=== PATIENT | female | born 1940 | race Caucasian/White ===

== ENCOUNTER 2016-09-11 23:17 | Emergency (ER) | payer BC, MEDICARE ==
--- NOTE | 2016-09-12 00:27 | EDM.PDOC ---
[id number] 4d LT EYE SWOLLEN Time Seen by Provider: 09/11/16 23:37 Source of Information: Reports: Patient, Family History Limitations: Reports: Physical impairment - History of Present Illness INITIAL COMMENTS - FREE TEXT/NARRATIVE: 76 y.o.w.f. slipped over a rug and fell onto her left face. No LOC. Left orbit swell up after the fall. Pt had full vision at her left eye after the fall. Later on her face swell and she was not able see through her left eye due to postorbital swelling. Pt denies other injuries, no N/V/D Onset: today Onset Date: 09/11/16 Onset Time: 17:00 Duration: Hour(s):, Getting worse Quality: Reports: Pressure Severity: mild Improves with: Reports: None Worsens with: Reports: None Associated Symptoms: Reports: denies other symptoms - Related Data Allergies Allergy/AdvReac Type Severity Reaction Status Date / Time No Known Allergies Allergy Verified 09/11/16 23:27 Home Meds: Home Meds Amitriptyline [Elavil] 75 mg PO BEDTIME 04/20/15 [History] Ascorbic Acid [Vitamin C] 250 - 500 mg PO DAILY 04/20/15 [History] Aspirin [Halfprin] 81 mg PO DAILY 04/20/15 [History] Atenolol/Chlorthalidone [Tenoretic 100] 1.5 tab PO DAILY 04/20/15 [History] Cholecalciferol (Vitamin D3) [Vitamin D3] 1,000 units PO DAILY 04/20/15 [History ] Cyanocobalamin (Vitamin B-12) [Vitamin B-12] 500 mcg PO DAILY 04/20/15 [History] Ferrous Sulfate 650 mg PO DAILY 04/20/15 [History] Insuln Asp Prot/Insulin Aspart [NovoLOG Mix 70-30] 50 units SUBCUT BIDMEALS 09/29 [History] Multivitamin [Daily Multiple Vitamin] 1 tab PO DAILY 04/20/15 [History] PARoxetine [Paxil] 30 mg PO DAILY 04/20/15 [History] Sennosides/Docusate Sodium [Senna-S] 1 tab PO BID 04/20/15 [History] amLODIPine/Benazepril [Lotrel 5-20 MG] 1 cap PO DAILY 04/20/15 [History] atorvaSTATin [Lipitor] 20 mg PO DAILY 04/20/15 [History] metFORMIN [Glucophage] 1,275 mg PO BIDMEALS 04/20/15 [History] Past Medical History Cardiovascular History: Reports: Hypertension Other Cardiovascular History: currently heart rhythm study - Past Surgical History HEENT Surgical History: Reports: Other (see below) Other HEENT Surgeries/Procedures: both eyes GI Surgical History: Reports: Other (see below) Other GI Surgeries/Procedures: Colectomy for Colon CA Musculoskeletal Surgical History: Reports: Other (see below) Other Musculoskeletal Surgeries/Procedures:: Trans Lumbar interbody fusion Social & Family History - Tobacco Use Smoking Status *Q: Former Smoker Years of Tobacco use: 25 Used Tobacco, but Quit: No Second Hand Smoke Exposure: No - Caffeine Use Caffeine Use: Reports: Coffee - Recreational Drug Use Recreational Drug Use: No ED ROS GENERAL - Review of Systems Review Of Systems: See Below Constitutional: Reports: no symptoms HEENT: Reports: Other (swelling left face after fall) Respiratory: Reports: No Symptoms Cardiovascular: Reports: No symptoms Endocrine: Reports: no symptoms GI/Abdominal: Reports: No symptoms : Reports: no symptoms Musculoskeletal: Reports: no symptoms Skin: Reports: no symptoms Neurological: Reports: No Symptoms Psychiatric: Reports: No symptoms Hematologic/Lymphatic: Reports: no symptoms Immunologic: Reports: no symptoms ED EXAM, GENERAL - Physical Exam Exam: See Below Exam Limited By: No limitations General Appearance: alert, WD/WN, mild distress Eye Exam: left eye: other (periorbital swelling) Ears: normal external exam, normal canal Ear Exam: bilateral ear: auricle normal Nose: normal inspection, normal mucosa Throat/Mouth: Normal inspection, Normal lips Head: facial swelling (left periorbital) Neck: normal inspection Respiratory/Chest: no respiratory distress, lungs clear Cardiovascular: normal peripheral pulses, regular rate, rhythm Peripheral Pulses: 3+: femoral (L), femoral (R) GI/Abdominal: normal bowel sounds, soft, non tender (Female) Exam: Deferred Rectal (Female) Exam: Deferred Back Exam: normal inspection, full range of motion Extremities: normal inspection, normal range of motion Neurological: alert, oriented, CN II-XII intact, normal cognition, normal gait Psychiatric: normal affect, normal mood Skin Exam: Warm, Dry, Intact, Normal color, No rash Lymphatic: no adenopathy Course - Vital Signs Text/Narrative:: 76 y.o.w.f. slipped over a rug and fell onto her left face. No LOC. Left orbit swell up after the fall. Pt had full vision at her left eye after the fall. Later on her face swell and she was not able see through her left eye due to postorbital swelling. Pt denies other injuries, no N/V/D, takes ASA daily PE: Left sided periorbital swelling, EOMI Imaging: FT face, no Fx, soft tissue swelling Impression: Left sided periorbital hematoma Tx: Ice.Pt refused pain meds reexam: Improved Plan: D/C home with instructions Last Recorded V/S: Last Vital Signs Temp 36.7 C 09/11/16 23:37 Pulse 82 09/12/16 00:35 Resp 20 09/11/16 23:37 BP 145/65 H 09/12/16 00:35 Pulse Ox 96 09/11/16 23:37 - Orders/Labs/Meds Orders: Active Orders 24 hr Category Date Time Status Head wo Cont [CT] Stat Exams 09/11/16 23:31 Taken Max Facial Sinus wo Cont [CT] Stat Exams 09/11/16 23:30 Taken Departure - Departure Time of Disposition: 00:27 Disposition: Home, Self-Care 01 Condition: good Clinical Impression: Periorbital hematoma of left eye Fall Qualifiers: Encounter type: initial encounter Qualified Code(s): W19.XXXA - Unspecified fall, initial encounter Instructions: Fall Prevention in the Home, [id number] Referrals: Jason Burroughs MD [Primary Care Provider] - Forms: ED Department Discharge Additional Instructions: Please apply ice to the affected area, Please f/u with your eye doctor, please come back to he ed if your symptoms get worse acutely. - My Orders Last 24 Hours: My Active Orders 09/11/16 23:30 Max Facial Sinus wo Cont [CT] Stat 09/11/16 23:31 Head wo Cont [CT] Stat - Assessment/Plan Last 24 Hours: My Active Orders 09/11/16 23:30 Max Facial Sinus wo Cont [CT] Stat 09/11/16 23:31 Head wo Cont [CT] Stat
[2016-09-12 00:51] VITALS: BP 145/65
== END 2016-09-12 00:40 | disposition home or self-care (01) ==
LOC: FB.ED 23:17
DX: S05.12XA Contusion of eyeball and orbital tissues, left eye, initial encounter (principal); I10 Essential (primary) hypertension; W01.0XXA Fall on same level from slipping, tripping and stumbling without subsequent striking against object, initial encounter; Z79.82 Long term (current) use of aspirin; Z79.899 Other long term (current) drug therapy; Z87.891 Personal history of nicotine dependence
CPT/HCPCS: 70450; 70486; 99284

== ENCOUNTER 2017-01-29 10:28 | Inpatient (IN) | payer BC, MEDICARE ==
--- NOTE | 2017-01-29 10:52 | EDM.PDOC ---
ED HPI GENERAL MEDICAL PROBLEM - General Chief Complaint: Lower Extremity Injury/Pain Stated Complaint: FEELING ILL Time Seen by Provider: 01/29/17 10:40 Source of Information: Reports: Patient, Old Records History Limitations: Reports: No Limitations - History of Present Illness INITIAL COMMENTS - FREE TEXT/NARRATIVE: 76 yo diabetic female was seen last week for some ankle pain/erythema and was dx with gout and placed on prednisone. Now the redness and pain is getting worse and is spreading up the leg. No chills. The family called the clinic(Dr. Burroughs) today and found there were no appts available until this afternoon. They didn't want to wait so came to the ER. 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 (see below) (prednisone) R foot/ankle Pain Score (Numeric/FACES): 10 - Related Data Allergies Allergy/AdvReac Type Severity Reaction Status Date / Time No Known Allergies Allergy Verified 09/11/16 23:27 Home Meds: Home Meds Amitriptyline [Elavil] 75 mg PO BEDTIME 04/20/15 [History] Ascorbic Acid [Vitamin C] 250 - 500 mg PO DAILY 04/20/15 [History] Aspirin [Halfprin] 81 mg PO DAILY 04/20/15 [History] Atenolol/Chlorthalidone [Tenoretic 100] 1.5 tab PO DAILY 04/20/15 [History] Cholecalciferol (Vitamin D3) [Vitamin D3] 1,000 units PO DAILY 04/20/15 [History ] Cyanocobalamin (Vitamin B-12) [Vitamin B-12] 500 mcg PO DAILY 04/20/15 [History] Ferrous Sulfate 650 mg PO DAILY 04/20/15 [History] Insuln Asp Prot/Insulin Aspart [NovoLOG Mix 70-30] 50 units SUBCUT BIDMEALS 09/29 [History] Multivitamin [Daily Multiple Vitamin] 1 tab PO DAILY 04/20/15 [History] PARoxetine [Paxil] 30 mg PO DAILY 04/20/15 [History] Sennosides/Docusate Sodium [Senna-S] 1 tab PO BID 04/20/15 [History] amLODIPine/Benazepril [Lotrel 5-20 MG] 1 cap PO DAILY 04/20/15 [History] atorvaSTATin [Lipitor] 20 mg PO DAILY 04/20/15 [History] metFORMIN [Glucophage] 1,275 mg PO BIDMEALS 04/20/15 [History] Past Medical History Cardiovascular History: Reports: Hypertension Other Cardiovascular History: currently heart rhythm study - Past Surgical History HEENT Surgical History: Reports: Other (See Below) GI Surgical History: Reports: Other (See Below) Musculoskeletal Surgical History: Reports: Other (See Below) Social & Family History - Tobacco Use Smoking Status *Q: Former Smoker Years of Tobacco use: 25 Used Tobacco, but Quit: No Second Hand Smoke Exposure: No - Caffeine Use Caffeine Use: Reports: Coffee - Recreational Drug Use Recreational Drug Use: No Review of Systems - Review of Systems Review Of Systems: See Below Constitutional: Reports: No Symptoms Eyes: Reports: No Symptoms Ears: Reports: No Symptoms Nose: Reports: No Symptoms Mouth/Throat: Reports: No Symptoms Respiratory: Reports: No Symptoms Cardiovascular: Reports: No Symptoms GI/Abdominal: Reports: No Symptoms Genitourinary: Reports: No Symptoms Musculoskeletal: Reports: Joint Pain (R ankle) Skin: Reports: Erythema (R foot and distal R leg) Neurological: Reports: No Symptoms ED EXAM, GENERAL - Physical Exam Exam: See Below Exam Limited By: No Limitations General Appearance: Alert, WD/WN, No Apparent Distress Eye Exam: Bilateral Eye: Normal Inspection Ears: Normal External Exam, Normal Canal, Hearing Grossly Normal Ear Exam: Bilateral Ear: Auricle Normal, Canal Normal Nose: Normal Inspection, Normal Mucosa, No Blood Throat/Mouth: Normal Inspection, Normal Lips, Normal Oropharynx, No Airway Compromise Head: Atraumatic, Normocephalic Neck: Normal Inspection Respiratory/Chest: No Respiratory Distress, Lungs Clear, Normal Breath Sounds, No Accessory Muscle Use Cardiovascular: Regular Rate, Rhythm, No Edema GI/Abdominal: Soft, Non-Tender, No Distention Extremities: Redness (R distal leg and ankle. Slight increase in skin temperature locally.) Neurological: Alert, Oriented, CN II-XII Intact, Normal Cognition, No Motor/ Sensory Deficits Psychiatric: Normal Affect, Normal Mood Skin Exam: Warm, Dry, Intact, No Rash, Erythema (R ankle and distal R leg) Lymphatic: No Adenopathy Course - Vital Signs Last Recorded V/S: Last Vital Signs Temp 37.7 C 01/29/17 10:28 Pulse 108 H 01/29/17 10:28 Resp 18 01/29/17 10:28 BP 134/81 01/29/17 10:28 Pulse Ox 97 01/29/17 10:28 - Orders/Labs/Meds Orders: Active Orders 24 hr Category Date Time Status CULTURE BLOOD [BC] Urgent Lab 01/29/17 10:45 Received CULTURE BLOOD [BC] Urgent Lab 01/29/17 10:50 Received Acetaminophen [Tylenol Extra Strength] Med 01/29/17 11:24 Once 1,000 mg PO ONETIME ONE Blood Culture x2 Reflex Set [OM.PC] Urgent Oth 01/29/17 10:33 Ordered Labs: Laboratory Tests 01/29/17 01/29/17 01/29/17 Range/Units 10:45 10:45 10:50 WBC 10.9 (4.5-12.0) X10-3/uL RBC 3.78 (3.23-5.20) x10(6)uL Hgb 10.9 L (11.5-15.5) g/dL Hct 32.3 (30.0-51.3) % MCV 85.5 (80-96) fL MCH 28.7 (27.7-33.6) pg MCHC 33.6 (32.2-35.4) g/dL RDW 13.2 (11.5-15.5) % Plt Count 363 (125-369) X10(3)uL MPV 6.9 L (7.4-10.4) fL Neut % (Auto) 79.7 (46-82) % Lymph % (Auto) 10.2 L (13-37) % [place] % (Auto) 9.8 (4-12) % Eos % (Auto) 0 L (1.0-5.0) % Baso % (Auto) 0 (0-2) % Neut # (Auto) 8.7 H (1.6-8.3) # Lymph # (Auto) 1.1 (0.6-5.0) # [place] # (Auto) 1.1 (0.0-1.3) # Eos # (Auto) 0.0 (0.0-0.8) # Baso # (Auto) 0.0 (0.0-0.2) # Sodium 131 L (135-145) mmol/L Potassium 4.1 (3.5-5.3) mmol/L Chloride 92 L (100-110) mmol/L Carbon Dioxide 26 (23-29) mmol/L BUN 19 (8-23) mg/dL Creatinine 1.4 H (0.6-1.3) mg/dL Est Cr Clr Drug Dosing 30.28 mL/min Estimated GFR (MDRD) 36 L (>60) BUN/Creatinine Ratio 13.6 (9-20) Glucose 218 H (80-116) mg/dL Calcium 9.5 (8.6-10.2) mg/dL C-Reactive Protein > 20.0 H* (0.0-1.0) mg/dL Meds: Medications Discontinued Medications Generic Name Dose Route Start Last Admin Trade Name Freq PRN Reason Stop Dose Admin Trimethoprim/Sulfamethoxazole 1 tab 01/29/17 11:02 Septra Ds PO 01/29/17 11:03 ONETIME ONE Departure - Departure Time of Disposition: 11:35 Disposition: Home, Self-Care 01 Condition: Fair Clinical Impression: Cellulitis of right leg - Discharge Information - My Orders Last 24 Hours: My Active Orders 01/29/17 10:33 Blood Culture x2 Reflex Set [OM.PC] Urgent 01/29/17 10:45 CULTURE BLOOD [BC] Urgent 01/29/17 10:50 CULTURE BLOOD [BC] Urgent 01/29/17 11:24 Acetaminophen [Tylenol Extra Strength] 1,000 mg PO ONETIME ONE - Assessment/Plan Last 24 Hours: My Active Orders 01/29/17 10:33 Blood Culture x2 Reflex Set [OM.PC] Urgent 01/29/17 10:45 CULTURE BLOOD [BC] Urgent 01/29/17 10:50 CULTURE BLOOD [BC] Urgent 01/29/17 11:24 Acetaminophen [Tylenol Extra Strength] 1,000 mg PO ONETIME ONE
[2017-01-29] MEDS ORDERED: Sulfamethoxazole/Trimethoprim 800-160 MG Tab PO ONE (11:02)
[2017-01-29] MEDS ORDERED: Acetaminophen 500 MG Tab PO ONE (11:24)
[2017-01-29] MEDS ORDERED: Ondansetron 4 MG Tab.DIS PO PRN (12:31)
[2017-01-29] MEDS ORDERED: Polyethylene Glycol 3350 Powder 17 GM Packet PO PRN (12:31)
[2017-01-29] MEDS ORDERED: Acetaminophen 325 MG Tab PO PRN ×2 (12:31→15:30)
[2017-01-29] MEDS ORDERED: Acetaminophen/HYDROcodone 325-5 MG Tab PO PRN (12:31)
[2017-01-29] MEDS ORDERED: Morphine 2 MG/ML Syringe IVPUSH PRN (12:31)
[2017-01-29] MEDS ORDERED: Sodium Chloride 0.9% 1,000 ML IV SCH (12:45)
--- NOTE | 2017-01-29 14:05 | CR ---
INDICATION: Pretibial infection, pain. RIGHT ANKLE: Frontal and lateral views of the right tibia and fibula revealed soft tissue swelling at the lower calf and ankle bilaterally. Arterial calcifications are noted. Mild degenerative changes are noted at the ankle mortise without definite evidence of osteomyelitis, fracture, dislocation, or other significant bone or joint abnormality. A small calcific density is noted inferior to the lateral malleolus, which may be related to a soft tissue calcification due to a previous injury - correlate clinically. This study was obtained 01/29/2017 - no comparisons were available. IMPRESSION: 1. Mild osteoarthritis ankle mortise. 2. ASD. 3. Soft tissue swelling. MTDD
[2017-01-29] MEDS ORDERED: fentaNYL 100 MCG/2 ML SDV IV ONE (14:20)
[2017-01-29] MEDS ORDERED: Midazolam 1 MG/ML 2 ML SDV IV ONE (14:20)
[2017-01-29] MEDS ORDERED: Propofol 200 MG/20 ML SDV IV ONE (14:20)
[2017-01-29] MEDS ORDERED: Ketorolac 15 MG/ML SDV IVPUSH ONE (14:20)
[2017-01-29] MEDS ORDERED: Bupivacaine 0.5% 30 ML SDV INJECT ONE (14:58)
[2017-01-29] MEDS ORDERED: Docusate Sodium 100 MG Cap PO PRN (15:30)
[2017-01-29] MEDS: Lactated Ringers 1,000 ML IV SCH (16:15)
[2017-01-29] MEDS: Insuln Aspart Prot/Insulin Aspart 100 Units/ML 3 ML FlexPen SUBCUT SCH (19:45)
[2017-01-29] MEDS: Enoxaparin 30 MG/0.3 ML Syringe SUBCUT SCH (19:48)
[2017-01-29] MEDS: Amitriptyline 25 MG Tab PO SCH (20:17)
[2017-01-29] MEDS: PARoxetine 20 MG Tab PO SCH (20:21)
--- NOTE | 2017-01-29 20:50 | OR ---
DATE OF OPERATION: 01/29/2017 SURGEON: Justin Leonard MD PREOPERATIVE DIAGNOSIS: Infected right ankle with associated cellulitis. POSTOPERATIVE DIAGNOSIS: Infected right ankle with associated cellulitis. PROCEDURE PERFORMED: Irrigation and debridement, right ankle. OPERATIVE NOTE: The patient was taken to the operating room, placed on the operating room table in a supine position. A light MAC anesthesia was given with a local 0.5% Marcaine block. The patient had a sterile ChloraPrep performed from the tip of the toes to the knee. A sterile draping procedure was then carried out. The patient then had the local block applied without difficulty. A small incision approximately 2.5 inches in length was made over the anterior aspect of the joint. Skin and subcutaneous tissues were carefully dissected through and hemostasis was achieved utilizing electrocautery. The patient had the ankle joint open with a small hemostat and immediately bloody kind of cloudy newell material was expressed from the ankle joint. This was sent for aerobic and anaerobic cultures. Thorough irrigation was then carried out with approximately 700 mL of sterile normal saline with bacitracin. Once this was done, we then packed the joint with a half-inch iodoform gauze and closed the skin with 2-0 Ethilon. Area was cleansed, sterile dressings applied. COMPLICATIONS: None. ESTIMATED BLOOD LOSS: Approximately 5 mL. /[id number] SALO/ELISABETH
[2017-01-30] MEDS: Lactated Ringers 1,000 ML IV SCH (00:16)
[2017-01-30] MEDS: Acetaminophen/HYDROcodone 325-5 MG Tab PO PRN ×4 (04:09→16:35)
--- NOTE | 2017-01-30 08:46 | PCM.HP ---
H&P History of Present Illness - General Date of Service: 01/30/17 Admit Problem/Dx: Admission Diagnosis/Problem Admission Diagnosis/Problem Ankle joint pain Source of Information: Patient, Old Records - History of Present Illness Initial Comments - Free Text/Narative: 6 yo female admitted Because of pain in right ankle. The pain has been persistent,mild to moderate, for 3-4 days, seen on the by the CT treated for gout. At that visit uric acid level 7.5; slightly above the reference range. The pain and swelling increased she was brought to the emergency room where Dr. Leonard saw her,took her to the OR for debridement and diagnosed her with septic arthritis and cellulitis. I'm being consulted for medical management of other chronic conditions. She has a history of CKD stage III, stable hypertension stable, type 2 diabetes among with a recent A1c in December of 8.0. Just has depression that is well controlled. R foot/ankle Pain Score (Numeric/FACES): 2 - Related Data Allergies/Adverse Reactions: Allergies Allergy/AdvReac Type Severity Reaction Status Date / Time No Known Allergies Allergy Verified 01/29/17 12:31 Home Medications: Home Meds Amitriptyline [Elavil] 75 mg PO BEDTIME 04/20/15 [History] Ascorbic Acid [Vitamin C] 250 mg PO DAILY 04/20/15 [History] Aspirin [Halfprin] 81 mg PO DAILY 04/20/15 [History] Cholecalciferol (Vitamin D3) [Vitamin D3] 1,000 units PO DAILY 04/20/15 [History ] Cyanocobalamin (Vitamin B-12) [Vitamin B-12] 500 mcg PO DAILY 04/20/15 [History] Ferrous Sulfate 650 mg PO DAILY 04/20/15 [History] Insuln Asp Prot/Insulin Aspart [NovoLOG Mix 70-30] 50 units SUBCUT BIDMEALS 09/29 [History] Multivitamin [Daily Multiple Vitamin] 1 tab PO DAILY 04/20/15 [History] PARoxetine [Paxil] 30 mg PO DAILY 04/20/15 [History] atorvaSTATin [Lipitor] 20 mg PO DAILY 04/20/15 [History] Allopurinol [Zyloprim] 100 mg PO DAILY 01/29/17 [History] Metoprolol Succinate [Toprol XL] 50 mg PO DAILY 01/29/17 [History] PARoxetine HCl [Paxil] 20 mg PO BEDTIME 01/29/17 [History] Prednisone [IJD: Prednisone] 5 mg PO DAILY 01/29/17 [History] Sulfamethoxazole/Trimethoprim [Bactrim Ds Tablet] 1 each PO Q12H #14 tablet [Rx] amLODIPine Besylate/Benazepril [Amlodipine-Benazepril 5-20 MG] 1 tab DAILY 01/29 [History] metFORMIN [Glucophage] 1,275 mg PO DAILY 01/29/17 [History] metFORMIN [Glucophage] 425 mg PO WITHDINNER 01/29/17 [History] Past Medical History HEENT History: Reports: Cataract Cardiovascular History: Reports: Hypertension Other Cardiovascular History: currently heart rhythm study Gastrointestinal History: Reports: Other (See Below) Other Gastrointestinal History: colon cancer x2 Genitourinary History: Reports: Chronic 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 Psychiatric History: Reports: Anxiety, Depression Endocrine/Metabolic History: Reports: Diabetes, Type II, Obesity/BMI 30+ Hematologic History: Reports: Anemia, Iron Deficiency Oncologic (Cancer) History: Reports: Colon Other Oncologic History: colon CA x 2. Dermatologic History: Reports: Other (See Below) Other Dermatologic History: Currently has cellulitis to lower right ankle area. nervous condition, picks @ arms bilat & face. - Infectious Disease History Infectious Disease History: Reports: Chicken Pox, Measles, Mumps - Past Surgical History HEENT Surgical History: Reports: Cataract Surgery, Other (See Below) GI Surgical History: Reports: Colon, Colonoscopy, Other (See Below) Female Surgical History: Reports: Section Other Female Surgeries/Procedures: CS x 1 Musculoskeletal Surgical History: Reports: Other (See Below) Other Musculoskeletal Surgeries/Procedures:: Back surgery Social & Family History - Family History Family Medical History: Noncontributory - Tobacco Use Smoking Status *Q: Former Smoker Years of Tobacco use: 25 Used Tobacco, but Quit: Yes Month Tobacco Last Used: 1990 Second Hand Smoke Exposure: No - Caffeine Use Caffeine Use: Reports: Soda - Recreational Drug Use Recreational Drug Use: No H&P Review of Systems - Review of Systems: Review Of Systems: ROS reveals no pertinent complaints other than HPI. Exam - Exam Exam: See Below - Vital Signs Vital Signs: Last Vital Signs Temp 98.8 F 01/30/17 07:33 Pulse 97 01/30/17 00:20 Resp 18 01/30/17 07:33 BP 123/61 01/30/17 07:33 Pulse Ox 93 L 01/30/17 07:33 Weight: 91.535 kg - Exam General: Alert, Oriented, 4 HEENT: PERRLA, Hearing Intact, Mucosa Moist & [place], Nares Patent, Normal Nasal Septum, Posterior Pharynx Clear, Conjunctiva Clear, EOMI, EACs Clear, TMs Clear Neck: Supple, Trachea Midline, 2 Lungs: Clear to Auscultation, Normal Respiratory Effort Cardiovascular: Systolic Murmur GI/Abdominal Exam: Normal Bowel Sounds, Soft, Non-Tender, No Organomegaly, No Distention, No Abnormal Bruit, No Mass, Pelvis Stable (Female) Exam: Deferred Rectal (Female) Exam: Deferred Back Exam: Normal Inspection, Full Range of Motion, NT Extremities: Leg Pain, Increased Warmth, Redness, Other (right ankle in dressing.) Skin: Warm, Dry, Intact Neurological: Cranial Nerves Intact, Reflexes Equal Bilateral Neuro Extensive - Mental Status: Alert, Oriented x3, Normal Mood/Affect, Normal Cognition Neuro Extensive - Motor, Sensory, Reflexes: CN II-XII Intact, Normal Gait, Normal Reflexes Psychiatric: Alert, Normal Affect, Normal Mood - Patient Data Lab Results Last 24 hrs: Laboratory Results - last 24 hr 01/29/17 01/30/17 01/30/17 Range/Units 21:23 06:15 06:15 WBC 9.1 (4.5-12.0) X10-3/uL RBC 3.76 (3.23-5.20) x10(6)uL Hgb 10.5 L (11.5-15.5) g/dL Hct 32.0 (30.0-51.3) % MCV 85.2 (80-96) fL MCH 28.1 (27.7-33.6) pg MCHC 32.9 (32.2-35.4) g/dL RDW 13.3 (11.5-15.5) % Plt Count 356 (125-369) X10(3)uL MPV 6.7 L (7.4-10.4) fL Neut % (Auto) 72.9 (46-82) % Lymph % (Auto) 13.1 (13-37) % [place] % (Auto) 12.2 H (4-12) % Eos % (Auto) 1 (1.0-5.0) % Baso % (Auto) 1 (0-2) % Neut # (Auto) 6.6 (1.6-8.3) # Lymph # (Auto) 1.2 (0.6-5.0) # [place] # (Auto) 1.1 (0.0-1.3) # Eos # (Auto) 0.1 (0.0-0.8) # Baso # (Auto) 0.1 (0.0-0.2) # Sodium 135 (135-145) mmol/L Potassium 4.2 (3.5-5.3) mmol/L Chloride 96 L (100-110) mmol/L Carbon Dioxide 29 (23-29) mmol/L BUN 13 (8-23) mg/dL Creatinine 1.1 (0.6-1.3) mg/dL Est Cr Clr Drug Dosing 37.76 mL/min Estimated GFR (MDRD) 48 L (>60) BUN/Creatinine Ratio 11.8 (9-20) Glucose 141 H (80-116) mg/dL POC Glucose 101 (80-116) mg/dL Calcium 9.3 (8.6-10.2) mg/dL Total Bilirubin 0.9 (0.1-1.3) mg/dL AST 56 H (5-27) IU/L ALT 55 H D (14-26) IU/L Alkaline Phosphatase 76 (56-112) IU/L Total Protein 7.7 (6.0-8.0) g/dL Albumin 3.0 L (3.2-4.6) g/dL Globulin 4.7 g/dL Albumin/Globulin Ratio 0.6 Result Diagrams: 01/30/17 06:15 01/30/17 06:15 Renny Results Last 24 hrs: Microbiology 01/29/17 14:45 Gram Stain - Final Ankle, Right *Q Meaningful Use (ADM) - VTE *Q VTE Criteria *Q: - Stroke *Q Stroke Criteria *Q: - AMI *Q AMI Criteria *Q: - Problem List (1) HTN (hypertension) SNOMED Code(s): 82733165 ICD Code: I10 - ESSENTIAL (PRIMARY) HYPERTENSION Status: Acute Current Visit: Yes Qualifiers: Hypertension type: essential hypertension Qualified Code(s): I10 - Essential (primary) hypertension (2) Diabetes type 2, controlled SNOMED Code(s): 84327295 ICD Code: E11.9 - TYPE 2 DIABETES MELLITUS WITHOUT COMPLICATIONS Status: Chronic Current Visit: Yes Qualifiers: Diabetes mellitus complication status: without complication 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: without group home use Qualified Code(s): E11.9 - Type 2 diabetes mellitus without complications (3) HLD (hyperlipidemia) SNOMED Code(s): 38767360 ICD Code: E78.5 - HYPERLIPIDEMIA, UNSPECIFIED Status: Chronic Current Visit: Yes Qualifiers: Hyperlipidemia type: unspecified Qualified Code(s): E78.5 - Hyperlipidemia , unspecified (4) CKD (chronic kidney disease) stage 3, GFR 30-59 ml/min SNOMED Code(s): 229304591 ICD Code: N18.3 - CHRONIC KIDNEY DISEASE, STAGE 3 (MODERATE) Status: Chronic Current Visit: Yes (5) Septic arthritis SNOMED Code(s): 472204135 ICD Code: M00.9 - PYOGENIC ARTHRITIS, UNSPECIFIED Status: Acute Current Visit: Yes Qualifiers: Septic arthritis location: ankle (6) Depression SNOMED Code(s): 33190898 ICD Code: F32.9 - MAJOR DEPRESSIVE DISORDER, SINGLE EPISODE, UNSPECIFIED Status: Chronic Current Visit: Yes Qualifiers: Depression Type: major depressive disorder (7) Gout SNOMED Code(s): 23570367 ICD Code: M10.9 - GOUT, UNSPECIFIED Status: Acute Current Visit: Yes Qualifiers: Gout site: ankle (8) Cellulitis of right leg SNOMED Code(s): 979429405 ICD Code: L03.115 - CELLULITIS OF RIGHT LOWER LIMB Status: Acute Current Visit: Yes Problem List Initiated/Reviewed/Updated: Yes Orders Last 24hrs: Active Orders 24 hr Category Date Time Status Patient Status [ADT] Routine ADT 01/29/17 15:31 Active Glucose [Blood Glucose Check, Bedside] [RC] Care 01/29/17 15:47 Active WITHMEALSANDBED Intake and Output [RC] 06,14,22 Care 01/29/17 15:33 Active Notify Provider Consults [RC] ASDIRECTED Care 01/29/17 15:37 Active Oxygen Therapy [RC] PRN Care 01/29/17 15:31 Active RT Incentive Spirometry [RC] Q2HR Care 01/29/17 15:30 Active Vital Signs [RC] Q4H Care 01/29/17 15:30 Active Consult to Physician [CONS] Routine Cons 01/29/17 15:30 Ordered Clear Liquid Diet [DIET] Diet 01/29/17 Dinner Active Regular Diet [DIET] Diet 01/30/17 Breakfast Active CULTURE ANAEROBIC [RM] Routine Lab 01/29/17 12:18 Results CULTURE ROUTINE + SMEAR [RM] Routine Lab 01/29/17 12:18 Results CULTURE ROUTINE + SMEAR [RM] Stat Lab 01/29/17 14:45 Results VANCOMYCIN TROUGH [CHEM] Timed Lab 02/01/17 08:30 Ordered Acetaminophen [Tylenol] Med 01/29/17 15:30 Active 650 mg PO Q4H PRN Acetaminophen/HYDROcodone [[place] 325-5 MG] Med 01/29/17 15:30 Active 1 tab PO Q3H PRN Allopurinol [Zyloprim] Med 01/30/17 09:00 Active 100 mg PO DAILY Amitriptyline [Elavil] Med 01/29/17 21:00 Active 75 mg PO BEDTIME Ascorbic Acid [Vitamin C] Med 01/30/17 09:00 Active 250 mg PO DAILY Aspirin [Halfprin] Med 01/30/17 09:00 Active 81 mg PO DAILY Benazepril [Lotensin] Med 01/30/17 09:00 Active 20 mg PO DAILY Cholecalciferol (Vitamin D3) [Vitamin D3] Med 01/30/17 09:00 Active 1,000 units PO DAILY Cyanocobalamin (Vitamin B12) [Vitamin B12] Med 01/30/17 09:00 Active 500 mcg PO DAILY Docusate Sodium [Colace] Med 01/29/17 15:30 Active 100 mg PO BID PRN Ferrous Sulfate Med 01/30/17 09:00 Active 650 mg PO DAILY Insuln Asp Prot/Insulin Aspart [NovoLOG Mix 70-30] Med 01/29/17 18:00 Active 50 unit SUBCUT BIDMEALS Lactated Ringers [Ringers, Lactated] 1,000 ml Med 01/29/17 15:30 Active IV ASDIRECTED Multivitamins [Tab-A-[place]] Med 01/30/17 09:00 Active 1 tab PO DAILY PARoxetine [Paxil] Med 01/29/17 21:00 Active 20 mg PO BEDTIME PARoxetine [Paxil] Med 01/30/17 09:00 Active 30 mg PO DAILY Sodium Chloride 0.9% [Normal Saline] 1,000 ml Med 01/29/17 12:45 Active IV ASDIRECTED Vancomycin 1,000 mg Med 01/30/17 09:00 Active Vancomycin 500 mg Sodium Chloride 0.9% [Normal Saline] 500 ml IV Q24H Vancomycin Pharmacy to Dose [Pharmacy to Dose - Med 01/29/17 16:00 Pending Vancomycin] 1 dose .XX ASDIRECTED amLODIPine [Norvasc] Med 01/30/17 09:00 Active 5 mg PO DAILY atorvaSTATin [Lipitor] Med 01/30/17 09:00 Active 20 mg PO DAILY metFORMIN [Glucophage] Med 01/30/17 09:00 Active 1,275 mg PO DAILY metFORMIN [Glucophage] Med 01/29/17 20:15 Active 425 mg PO WITHDINNER Heel Protector Application [OM.PC] Per Unit Routine Oth 01/29/17 15:34 Ordered Sequential Compression Device [OM.PC] Per Unit Routine Oth 01/29/17 15:34 Ordered Medication Orders Acetaminophen (Tylenol) 650 mg PO Q4H PRN PRN Reason: Pain/Fever Hydrocodone Bitart/Acetaminophen ([place] 325-5 Mg) 1 tab PO Q3H PRN PRN Reason: Pain Last Admin: 01/30/17 04:09 Dose: 1 tab Allopurinol (Zyloprim) 100 mg PO DAILY [facility] Amitriptyline HCl (Elavil) 75 mg PO BEDTIME ROSMERY Last Admin: 01/29/17 20:17 Dose: 75 mg Amlodipine Besylate (Norvasc) 5 mg PO DAILY [facility] Ascorbic Acid (Vitamin C) 250 mg PO DAILY [facility] Aspirin (Halfprin) 81 mg PO DAILY [facility] Atorvastatin Calcium (Lipitor) 20 mg PO DAILY [facility] Benazepril HCl (Lotensin) 20 mg PO DAILY [facility] Cholecalciferol (Vitamin D3) 1,000 units PO DAILY [facility] Cyanocobalamin (Vitamin B12) 500 mcg PO DAILY [facility] Docusate Sodium (Colace) 100 mg PO BID PRN PRN Reason: Constipation Enoxaparin Sodium (Lovenox) 30 mg SUBCUT DAILY [facility] Last Admin: 01/29/17 19:48 Dose: Ferrous Sulfate (Ferrous Sulfate) 650 mg PO DAILY [facility] Sodium Chloride (Normal Saline) 1,000 mls @ 75 mls/hr IV ASDIRECTED [facility] Lactated Ringer's (Ringers, Lactated) 1,000 mls @ 125 mls/hr IV ASDIRECTED [facility] Last Admin: 01/30/17 00:16 Dose: 125 mls/hr Infusion: 01/30/17 00:15 Dose: 125 mls/hr Admin: 01/29/17 16:15 Dose: 125 mls/hr Vancomycin HCl 1,000 mg/Vancomycin HCl 500 mg/ Sodium Chloride 500 mls @ 333.333 mls/hr IV Q24H [facility] Insulin Aspart (Novolog Mix 70-30) 50 unit SUBCUT BIDMEALS [facility] Last Admin: 01/29/17 19:45 Dose: 50 units Metformin HCl (Glucophage) 1,275 mg PO DAILY [facility] Metformin HCl (Glucophage) 425 mg PO WITHDINNER [facility] Last Admin: 01/29/17 19:45 Dose: 425 mg Morphine Sulfate (Morphine) 2 mg IVPUSH Q2H PRN PRN Reason: Pain (severe 7-10) Multivitamins/Minerals/Vitamin C (Tab-A-[place]) 1 tab PO DAILY [facility] Ondansetron HCl (Zofran Odt) 4 mg PO Q6H PRN PRN Reason: nausea, able to take PO Paroxetine HCl (Paxil) 30 mg PO DAILY [facility] Paroxetine HCl (Paxil) 20 mg PO BEDTIME [facility] Last Admin: 01/29/17 20:21 Dose: 20 mg Polyethylene Glycol (Miralax) 17 gm PO DAILY PRN PRN Reason: Constipation Vancomycin HCl (Pharmacy To Dose - Vancomycin) 1 dose .XX ASDIRECTED [facility] Assessment/Plan Comment:: I will continue to follow the patient along with Dr. Leonard. I believe she is on broad-spectrum antibiotics, I will restart her oral home medications and have a sliding scale of insulin to of tight glycemic control.
[2017-01-30] MEDS ORDERED: Non-Formulary Medication 1 Each (Amlodipine Besylate/Benazepril [Amlodipine-Benazepril 5-2 MUCMEM SCH (09:00)
[2017-01-30] MEDS: Insuln Aspart Prot/Insulin Aspart 100 Units/ML 3 ML FlexPen SUBCUT SCH ×2 (09:26→17:56)
--- NOTE | 2017-01-30 09:43 | CONS ---
DATE OF CONSULTATION: 01/29/2017 PROBLEM: Right ankle pain. SUBJECTIVE: This 76-year-old, white female, diabetic, presented to the clinic at [place] and saw Dr. Burroughs last week. She had ankle pain and a diagnosis of gout was made and she was started on prednisone. The pain gradually increased and on Saturday, she started noticing not only pain, but redness and swelling. She therefore presented to the emergency room where diagnosis of cellulitis and a possible infected ankle joint was made by Dr. Magdaleno Sen. In visiting with the patient today, she states that she is having pain that significantly limits her ability even to put the least amount of weight on it and even flexing and extending the ankle causes discomfort for her. She has mild to moderate swelling. The patient has discoloration from previous venous stasis and erythema extending medially above the medial malleolus about 8 inches and laterally about 12 inches. Any type of palpation or attempted movement by me today causes discomfort. She moves her toes well. She denies any hip pain or knee pain. Peripheral pulses are not appreciated on palpation because of swelling. ASSESSMENT: Cellulitis versus possible ankle infection. PLAN: A sterile ChloraPrep was performed over the ankle and then with sterile technique we injected the ankle joint from the anterior aspect with approximately 7 mL of 1% plain Xylocaine. The joint was then aspirated with an 18-gauge spinal needle. We were able to draw out a fluid that was somewhat copper colored in nature from the joint. Stat gram stain showed the patient had white blood cells as well as gram-positive cocci. ASSESSMENT: Infected right ankle with secondary cellulitis. PLAN: I have visited with the patient's caregiver and have recommended that she have this joint irrigated and debrided, and to be started immediately with IV vancomycin and admission to the hospital. It should be noted that the patient also has an elevated C-reactive protein of 20. Her caregiver concurs, as does the patient. The patient does have slight dementia however. The risks, complications, prognosis, expectations, and postoperative course are explained to her daughter and the patient. /[id number] SALO/ELISABETH VILLEGAS
[2017-01-30] MEDS: Ferrous Sulfate 325 MG Tab PO SCH (10:16)
[2017-01-30] MEDS: Aspirin 81 MG Tab.EC PO SCH (10:17)
[2017-01-30] MEDS: atorvaSTATin 20 MG Tab PO SCH (10:18)
[2017-01-30] MEDS: amLODIPine 5 MG Tab PO SCH (10:18)
[2017-01-30] MEDS: Enoxaparin 30 MG/0.3 ML Syringe SUBCUT SCH (10:19)
[2017-01-30] MEDS: Multivitamin Tab PO SCH (10:19)
[2017-01-30] MEDS: Cholecalciferol (Vitamin D3) 1,000 Unit Tab PO SCH (10:20)
[2017-01-30] MEDS: Cyanocobalamin (Vitamin B12) 500 MCG Tab PO SCH (10:20)
[2017-01-30] MEDS: Ascorbic Acid 500 MG Tab PO SCH (10:26)
[2017-01-30] MEDS: Metoprolol Succinate 50 MG Tab.ER PO SCH (10:26)
[2017-01-30] MEDS: Allopurinol 100 MG Tab PO SCH (10:27)
[2017-01-30] MEDS: Insulin Aspart 100 Units/ML 3 ML Pen SUBCUT SCH ×2 (12:15→17:57)
--- NOTE | 2017-01-30 13:16 | PN ---
DATE SEEN: 01/30/2017 DIAGNOSIS: Infection, right ankle joint with cellulitis. SUBJECTIVE: The patient states she feels better today, but still has discomfort when she moves the ankle. OBJECTIVE: Today, her vital signs are stable and the swelling has decreased by about 50% from yesterday. Erythema has decreased about 30%. The iodoform gauze is removed. The area is cleansed with alcohol. Xeroform was applied with 4x4s, soft roll and then a Baylee. This patient who has diabetes is still having a fair amount of pain, so therapy will be delayed today, but start it tomorrow. We will continue with the vancomycin per pharmacy recommendations based on kidney function. Repeat dressing change tomorrow. /[id number] SALO/ELISABETH
[2017-01-30] MEDS: PARoxetine 20 MG Tab PO SCH (21:25)
[2017-01-30] MEDS: Amitriptyline 25 MG Tab PO SCH (21:25)
[2017-01-31] MEDS: Insuln Aspart Prot/Insulin Aspart 100 Units/ML 3 ML FlexPen SUBCUT SCH ×2 (08:00→18:39)
[2017-01-31] MEDS: Insulin Aspart 100 Units/ML 3 ML Pen SUBCUT SCH ×3 (08:04→17:55)
[2017-01-31] MEDS: Sodium Chloride 0.9% 250 ML IV SCH (09:45)
[2017-01-31] MEDS: Enoxaparin 30 MG/0.3 ML Syringe SUBCUT SCH (09:58)
[2017-01-31] MEDS: Aspirin 81 MG Tab.EC PO SCH (10:01)
[2017-01-31] MEDS: Cholecalciferol (Vitamin D3) 1,000 Unit Tab PO SCH (10:02)
[2017-01-31] MEDS: Metoprolol Succinate 50 MG Tab.ER PO SCH (10:06)
[2017-01-31] MEDS: Ascorbic Acid 500 MG Tab PO SCH (10:09)
[2017-01-31] MEDS: atorvaSTATin 20 MG Tab PO SCH (10:10)
[2017-01-31] MEDS: Ferrous Sulfate 325 MG Tab PO SCH (10:10)
[2017-01-31] MEDS: Multivitamin Tab PO SCH (10:11)
[2017-01-31] MEDS: Cyanocobalamin (Vitamin B12) 500 MCG Tab PO SCH (10:11)
[2017-01-31] MEDS: amLODIPine 5 MG Tab PO SCH (10:11)
[2017-01-31] MEDS: Allopurinol 100 MG Tab PO SCH (10:12)
--- NOTE | 2017-01-31 10:16 | PN ---
DATE SEEN: 01/31/2017 REASON FOR VISIT: Arthritis, septic. HISTORY OF PRESENT ILLNESS: A 76-year-old female admitted 2 days ago for septic arthritis and then debridement, is doing very well this morning, has type 2 diabetes which is stable. Complains of no pain. She has chronic kidney disease, that is also well controlled, and hypertension and hyperlipidemia that are stable. She has depression that is well controlled. REVIEW OF SYSTEMS: All other systems this morning are negative. MEDICATIONS: Reviewed. PHYSICAL EXAMINATION: VITAL SIGNS: Afebrile. Blood pressure 128/67. GENERAL: Right ankle in an Rajendra wrap. Slightly warm. CHEST AND HEART: Normal to auscultation except for heart murmur, 2/6 systolic. MENTAL STATUS: Alert. LABORATORY DATA: This morning, glucose 166. IMPRESSION: 1. Cellulitis, right lower extremity. 2. Septic arthritis. 3. Hypertension. 4. Hyperlipidemia. 5. Type 2 diabetes, stable. 6. Depression, stable. PLAN: Continue current therapy. Dr. Leonard is directing her care in terms of discharge and disposition. /[id number] TN/MODL
--- NOTE | 2017-01-31 13:32 | PN ---
DATE SEEN: 01/31/2017 PROBLEM: 1. Septic right ankle. 2. Cellulitis. SUBJECTIVE: The patient states she is feeling a little bit better today as far as her pain. OBJECTIVE: VITAL SIGNS: Stable. EXTREMITIES: The dressing is changed today. She does have moderate amount of serous drainage that came out of her foot through the incision today. The swelling continues to decrease and the erythema has improved markedly from admission. We will continue the IV antibiotics and daily dressing changes will be made cleansing with alcohol, application of Xeroform, soft roll, and then Kerlix. We are starting physical therapy to help her with the use of a walker. Because of the patient's continued drainage and pain, we will continue with IV antibiotics in hospitalization. The patient's care over the weekend will be followed by the hospitalist Dr. Bach. C-reactive protein will be drawn tomorrow morning for verification that the infection is diminishing and culture and sensitivities for antibiotic should be back later today. /[id number] SALO/ELISABETH
[2017-01-31] MEDS: Clindamycin Phosphate 900 MG in Sodium Chloride 0.9% 100 ML IV SCH (16:00)
[2017-01-31] MEDS: Acetaminophen/HYDROcodone 325-5 MG Tab PO PRN (21:10)
[2017-01-31] MEDS: Amitriptyline 25 MG Tab PO SCH (21:10)
[2017-01-31] MEDS: PARoxetine 20 MG Tab PO SCH (21:10)
[2017-02-01] MEDS: Clindamycin Phosphate 900 MG in Sodium Chloride 0.9% 100 ML IV SCH ×3 (00:03→16:09)
[2017-02-01] MEDS: Sodium Chloride 0.9% 10 ML Syringe FLUSH PRN ×3 (08:12→20:10)
[2017-02-01] MEDS: Insuln Aspart Prot/Insulin Aspart 100 Units/ML 3 ML FlexPen SUBCUT SCH ×2 (08:27→17:53)
[2017-02-01] MEDS: Insulin Aspart 100 Units/ML 3 ML Pen SUBCUT SCH ×3 (08:29→17:41)
[2017-02-01] MEDS: Ferrous Sulfate 325 MG Tab PO SCH (08:40)
[2017-02-01] MEDS: Aspirin 81 MG Tab.EC PO SCH (08:41)
[2017-02-01] MEDS: atorvaSTATin 20 MG Tab PO SCH (08:41)
[2017-02-01] MEDS: Enoxaparin 30 MG/0.3 ML Syringe SUBCUT SCH (08:42)
[2017-02-01] MEDS: Allopurinol 100 MG Tab PO SCH (08:42)
[2017-02-01] MEDS: Multivitamin Tab PO SCH (08:43)
[2017-02-01] MEDS: amLODIPine 5 MG Tab PO SCH (08:43)
[2017-02-01] MEDS: Metoprolol Succinate 50 MG Tab.ER PO SCH (08:43)
[2017-02-01] MEDS: Cholecalciferol (Vitamin D3) 1,000 Unit Tab PO SCH (08:44)
[2017-02-01] MEDS: Cyanocobalamin (Vitamin B12) 500 MCG Tab PO SCH (08:44)
[2017-02-01] MEDS: Ascorbic Acid 500 MG Tab PO SCH (08:44)
--- NOTE | 2017-02-01 09:00 | PCM.PN ---
- General Info Date of Service: 02/01/17 Admission Dx/Problem (Free Text): Patient states that her ankle pain is improved today. She still has trouble bearing weight. She denies fevers or chills. - Patient Data Vitals - Most Recent: Last Vital Signs Temp 98.4 F 02/01/17 07:30 Pulse 79 02/01/17 08:43 Resp 18 02/01/17 07:30 BP 143/69 H 02/01/17 08:43 Pulse Ox 95 02/01/17 07:30 Weight - Most Recent: 201 lb 12.8 oz I&O - Last 24 Hours: Intake & Output 01/31/17 02/01/17 02/01/17 22:59 06:59 14:59 Intake Total 850 100 Output Total 200 1500 Balance 650 -1400 Lab Results Last 24 Hours: Laboratory Results - last 24 hr 01/31/17 01/31/17 01/31/17 Range/Units 11:06 17:51 20:52 POC Glucose 159 H 142 H 55 L D (80-116) mg/dL [facility]enny Results Last 24 Hours: Microbiology 01/29/17 14:45 Gram Stain - Final Ankle, Right Routine Culture - Preliminary Med Orders - Current: Current Medications Acetaminophen (Tylenol) 650 mg PO Q4H PRN PRN Reason: Pain/Fever Hydrocodone Bitart/Acetaminophen ([place]ol[place] 325-5 Mg) 1 tab PO Q3H PRN PRN Reason: Pain Last Admin: 01/30/17 12:21 Dose: 1 tab Hydrocodone Bitart/Acetaminophen ([place]ol[place] 325-5 Mg) 2 tab PO Q3H PRN PRN Reason: pain Last Admin: 01/31/17 21:10 Dose: 2 tab Allopurinol (Zyloprim) 100 mg PO DAILY [facility] Last Admin: 02/01/17 08:42 Dose: 100 mg Amitriptyline HCl (Elavil) 75 mg PO BEDTIME [facility] Last Admin: 01/31/17 21:10 Dose: 75 mg Amlodipine Besylate (Norvasc) 5 mg PO DAILY [facility] Last Admin: 02/01/17 08:43 Dose: 5 mg Ascorbic Acid (Vitamin C) 250 mg PO DAILY [facility] Last Admin: 02/01/17 08:44 Dose: 250 mg Aspirin (Halfprin) 81 mg PO DAILY [facility] Last Admin: 02/01/17 08:41 Dose: 81 mg Atorvastatin Calcium (Lipitor) 20 mg PO DAILY [facility] Last Admin: 02/01/17 08:41 Dose: 20 mg Benazepril HCl (Lotensin) 20 mg PO DAILY [facility] Last Admin: 02/01/17 08:41 Dose: 20 mg Cholecalciferol (Vitamin D3) 1,000 units PO DAILY [facility] Last Admin: 02/01/17 08:44 Dose: 1,000 units Cyanocobalamin (Vitamin B12) 500 mcg PO DAILY [facility] Last Admin: 02/01/17 08:44 Dose: 500 mcg Docusate Sodium (Colace) 100 mg PO BID PRN PRN Reason: Constipation Last Admin: 01/30/17 16:34 Dose: 100 mg Enoxaparin Sodium (Lovenox) 30 mg SUBCUT DAILY [facility] Last Admin: 02/01/17 08:42 Dose: 30 mg Ferrous Sulfate (Ferrous Sulfate) 650 mg PO DAILY [facility] Last Admin: 02/01/17 08:40 Dose: 650 mg Sodium Chloride (Normal Saline) 250 mls @ 100 mls/hr IV ASDIRECTED [facility] Last Admin: 01/31/17 09:45 Dose: 100 mls/hr Clindamycin Phosphate 900 mg/ (Sodium Chloride) 106 mls @ 200 mls/hr IV Q8H [facility] Last Admin: 02/01/17 08:13 Dose: 200 mls/hr Insulin Aspart (Novolog Mix 70-30) 50 unit SUBCUT BIDMEALS [facility] Last Admin: 02/01/17 08:27 Dose: 50 units Insulin Aspart (Novolog) 0 unit SUBCUT TIDMEALS [facility] PRN Reason: Protocol Last Admin: 02/01/17 08:29 Dose: Not Given Metformin HCl (Glucophage) 1,275 mg PO DAILY [facility] Last Admin: 02/01/17 08:40 Dose: 1,275 mg Metformin HCl (Glucophage) 425 mg PO WITHDINNER [facility] Last Admin: 01/31/17 18:38 Dose: 425 mg Metoprolol Succinate (Toprol Xl) 50 mg PO DAILY [facility] Last Admin: 02/01/17 08:43 Dose: 50 mg Morphine Sulfate (Morphine) 2 mg IVPUSH Q2H PRN PRN Reason: Pain (severe 7-10) Last Admin: 01/30/17 13:56 Dose: 2 mg Multivitamins/Minerals/Vitamin C (Tab-A-Savannah) 1 tab PO DAILY [facility] Last Admin: 02/01/17 08:43 Dose: 1 tab Ondansetron HCl (Zofran Odt) 4 mg PO Q6H PRN PRN Reason: nausea, able to take PO Paroxetine HCl (Paxil) 30 mg PO DAILY [facility] Last Admin: 02/01/17 08:43 Dose: 30 mg Paroxetine HCl (Paxil) 20 mg PO BEDTIME [facility] Last Admin: 01/31/17 21:10 Dose: 20 mg Polyethylene Glycol (Miralax) 17 gm PO DAILY PRN PRN Reason: Constipation Sodium Chloride (Saline Flush) 10 ml FLUSH ASDIRECTED PRN PRN Reason: Keep Vein Open Last Admin: 02/01/17 08:12 Dose: 10 ml Discontinued Medications Acetaminophen (Tylenol Extra Strength) 1,000 mg PO ONETIME ONE Stop: 01/29/17 11:25 Last Admin: 01/29/17 11:27 Dose: 1,000 mg Acetaminophen (Tylenol) 650 mg PO Q4H PRN PRN Reason: Pain (Mild 1-3)/fever Hydrocodone Bitart/Acetaminophen (Bol[place] 325-5 Mg) 1 tab PO Q4H PRN PRN Reason: Pain (moderate 4-6) Bacitracin (Bacitracin) 50,000 units .XX .STK-MED ONE Stop: 01/29/17 14:59 Last Admin: 01/29/17 14:58 Dose: 50,000 units Bupivacaine HCl (Marcaine 0.5%) 24 ml INJECT .STK-MED ONE Stop: 01/29/17 14:59 Last Admin: 01/29/17 14:58 Dose: 24 ml Fentanyl (Sublimaze) 50 mcg IV .STK-MED ONE Stop: 01/29/17 14:21 Sodium Chloride (Normal Saline) 1,000 mls @ 75 mls/hr IV ASDIRECTED [facility] Vancomycin HCl 1,000 mg/ (Sodium Chloride) 250 mls @ 167 mls/hr IV Q12H [facility] Vancomycin HCl 1,000 mg/ (Sodium Chloride) 250 mls @ 250 mls/hr IV Q12H [facility] Last Admin: 01/29/17 13:41 Dose: 250 mls/hr Lactated Ringer's (Ringers, Lactated) 1,000 mls @ 125 mls/hr IV ASDIRECTED [facility] Last Admin: 01/30/17 00:16 Dose: 125 mls/hr Vancomycin HCl 1,000 mg/Vancomycin HCl 500 mg/ Sodium Chloride 500 mls @ 333.333 mls/hr IV Q24H [facility] Last Admin: 01/31/17 09:46 Dose: 333.333 mls/hr Ketorolac Tromethamine (Toradol) 15 mg IVPUSH .STK-MED ONE Stop: 01/29/17 14:21 Metformin HCl (Glucophage) 425 mg PO ACDINNER [facility] Metformin HCl (Glucophage) 850 mg PO WITHDINNER [facility] Metformin HCl (Glucophage) 1,275 mg PO BIDMEALS [facility] Last Admin: 01/29/17 19:52 Dose: Not Given Metformin HCl (Glucophage) 425 mg PO WITHDINNER [facility] Last Admin: 01/29/17 20:08 Dose: Not Given Midazolam HCl (Versed 1 Mg/Ml) 2 mg IV .STK-MED ONE Stop: 01/29/17 14:21 Non-Formulary Medication (Amlodipine Besylate/Benazepril [Amlodipine-Benazepril 5-20 Mg]) 1 tab MUCMEM DAILY [facility] Propofol (Diprivan 20 Ml) 320 mg IV .STK-MED ONE Stop: 01/29/17 14:21 Trimethoprim/Sulfamethoxazole (Septra Ds) 1 tab PO ONETIME ONE Stop: 01/29/17 11:03 Last Admin: 01/29/17 11:27 Dose: 1 tab - Exam General: Alert, Oriented, Cooperative Skin: Other (Wound right ankle has just a little serosanguineous drainage. No erythema. Less swelling.) - Problem List & Annotations (1) Status post incision and drainage SNOMED Code(s): 629843443, 802078362 Code(s): Z98.890 - OTHER SPECIFIED POSTPROCEDURAL STATES Status: Acute Current Visit: Yes (2) Cellulitis of right leg SNOMED Code(s): 923145925 Code(s): L03.115 - CELLULITIS OF RIGHT LOWER LIMB Status: Acute Current Visit: Yes - Problem List Review Problem List Initiated/Reviewed/Updated: Yes - Plan Plan:: Continue current care.
[2017-02-01] MEDS: Amitriptyline 25 MG Tab PO SCH (20:05)
[2017-02-01] MEDS: PARoxetine 20 MG Tab PO SCH (20:06)
[2017-02-01] MEDS: Acetaminophen/HYDROcodone 325-5 MG Tab PO PRN (20:14)
[2017-02-02] MEDS: Clindamycin Phosphate 900 MG in Sodium Chloride 0.9% 100 ML IV SCH ×3 (00:15→15:53)
[2017-02-02] MEDS: Sodium Chloride 0.9% 250 ML IV SCH (00:17)
[2017-02-02] MEDS: Insulin Aspart 100 Units/ML 3 ML Pen SUBCUT SCH ×3 (08:04→17:23)
[2017-02-02] MEDS: Insuln Aspart Prot/Insulin Aspart 100 Units/ML 3 ML FlexPen SUBCUT SCH ×2 (08:04→17:23)
[2017-02-02] MEDS: Ferrous Sulfate 325 MG Tab PO SCH (08:05)
[2017-02-02] MEDS: Aspirin 81 MG Tab.EC PO SCH (08:06)
[2017-02-02] MEDS: atorvaSTATin 20 MG Tab PO SCH (08:07)
[2017-02-02] MEDS: amLODIPine 5 MG Tab PO SCH (08:13)
[2017-02-02] MEDS: Enoxaparin 30 MG/0.3 ML Syringe SUBCUT SCH (08:13)
[2017-02-02] MEDS: Metoprolol Succinate 50 MG Tab.ER PO SCH (08:15)
[2017-02-02] MEDS: Cyanocobalamin (Vitamin B12) 500 MCG Tab PO SCH (08:15)
[2017-02-02] MEDS: Multivitamin Tab PO SCH (08:15)
[2017-02-02] MEDS: Ascorbic Acid 500 MG Tab PO SCH (08:16)
[2017-02-02] MEDS: Allopurinol 100 MG Tab PO SCH (08:17)
[2017-02-02] MEDS: Cholecalciferol (Vitamin D3) 1,000 Unit Tab PO SCH (08:17)
--- NOTE | 2017-02-02 09:12 | PCM.PN ---
- General Info Date of Service: 02/02/17 Admission Dx/Problem (Free Text): Patient states she still has pain in the right ankle. She denies fevers or chills. - Patient Data Vitals - Most Recent: Last Vital Signs Temp 98.3 F 02/02/17 04:30 Pulse 99 02/02/17 08:15 Resp 20 02/02/17 04:30 BP 111/46 L 02/02/17 08:15 Pulse Ox 96 02/02/17 04:30 Weight - Most Recent: 201 lb 12.8 oz I&O - Last 24 Hours: Intake & Output 02/01/17 02/02/17 02/02/17 22:59 06:59 14:59 Intake Total 533 130 136 Output Total 1250 Balance 533 -1120 136 Lab Results Last 24 Hours: Laboratory Results - last 24 hr 02/01/17 02/01/17 02/01/17 Range/Units 06:30 08:50 11:56 POC Glucose 91 83 (80-116) mg/dL C-Reactive Protein 16.7 H* (0.0-1.0) mg/dL 02/01/17 02/01/17 02/02/17 Range/Units 16:16 19:58 07:19 POC Glucose 119 H 89 146 H (80-116) mg/dL C-Reactive Protein (0.0-1.0) mg/dL Renny Results Last 24 Hours: Microbiology 01/29/17 14:45 Gram Stain - Final Ankle, Right Routine Culture - Final Med Orders - Current: Current Medications Acetaminophen (Tylenol) 650 mg PO Q4H PRN PRN Reason: Pain/Fever Hydrocodone Bitart/Acetaminophen ([place] 325-5 Mg) 1 tab PO Q3H PRN PRN Reason: Pain Last Admin: 01/30/17 12:21 Dose: 1 tab Hydrocodone Bitart/Acetaminophen ([place] 325-5 Mg) 2 tab PO Q3H PRN PRN Reason: pain Last Admin: 02/01/17 20:14 Dose: 2 tab Allopurinol (Zyloprim) 100 mg PO DAILY [facility] Last Admin: 02/02/17 08:17 Dose: 100 mg Amitriptyline HCl (Elavil) 75 mg PO BEDTIME [facility] Last Admin: 02/01/17 20:05 Dose: 75 mg Amlodipine Besylate (Norvasc) 5 mg PO DAILY [facility] Last Admin: 02/02/17 08:13 Dose: 5 mg Ascorbic Acid (Vitamin C) 250 mg PO DAILY [facility] Last Admin: 02/02/17 08:16 Dose: 250 mg Aspirin (Halfprin) 81 mg PO DAILY [facility] Last Admin: 02/02/17 08:06 Dose: 81 mg Atorvastatin Calcium (Lipitor) 20 mg PO DAILY [facility] Last Admin: 02/02/17 08:07 Dose: 20 mg Benazepril HCl (Lotensin) 20 mg PO DAILY [facility] Last Admin: 02/02/17 08:12 Dose: 20 mg Cholecalciferol (Vitamin D3) 1,000 units PO DAILY [facility] Last Admin: 02/02/17 08:17 Dose: 1,000 units Cyanocobalamin (Vitamin B12) 500 mcg PO DAILY [facility] Last Admin: 02/02/17 08:15 Dose: 500 mcg Docusate Sodium (Colace) 100 mg PO BID PRN PRN Reason: Constipation Last Admin: 01/30/17 16:34 Dose: 100 mg Enoxaparin Sodium (Lovenox) 30 mg SUBCUT DAILY [facility] Last Admin: 02/02/17 08:13 Dose: 30 mg Ferrous Sulfate (Ferrous Sulfate) 650 mg PO DAILY [facility] Last Admin: 02/02/17 08:05 Dose: 650 mg Sodium Chloride (Normal Saline) 250 mls @ 100 mls/hr IV ASDIRECTED [facility] Last Admin: 02/02/17 00:17 Dose: 100 mls/hr Clindamycin Phosphate 900 mg/ (Sodium Chloride) 106 mls @ 200 mls/hr IV Q8H [facility] Last Admin: 02/02/17 07:57 Dose: 200 mls/hr Insulin Aspart (Novolog Mix 70-30) 50 unit SUBCUT BIDMEALS [facility] Last Admin: 02/02/17 08:04 Dose: 50 units Insulin Aspart (Novolog) 0 unit SUBCUT TIDMEALS [facility] PRN Reason: Protocol Last Admin: 02/02/17 08:04 Dose: Not Given Metformin HCl (Glucophage) 1,275 mg PO DAILY [facility] Last Admin: 02/02/17 08:06 Dose: 1,275 mg Metformin HCl (Glucophage) 425 mg PO WITHDINNER [facility] Last Admin: 02/01/17 17:54 Dose: 425 mg Metoprolol Succinate (Toprol Xl) 50 mg PO DAILY [facility] Last Admin: 02/02/17 08:15 Dose: 50 mg Morphine Sulfate (Morphine) 2 mg IVPUSH Q2H PRN PRN Reason: Pain (severe 7-10) Last Admin: 01/30/17 13:56 Dose: 2 mg Multivitamins/Minerals/Vitamin C (Tab-A-Savannah) 1 tab PO DAILY [facility] Last Admin: 02/02/17 08:15 Dose: 1 tab Ondansetron HCl (Zofran Odt) 4 mg PO Q6H PRN PRN Reason: nausea, able to take PO Paroxetine HCl (Paxil) 30 mg PO DAILY [facility] Last Admin: 02/02/17 08:16 Dose: 30 mg Paroxetine HCl (Paxil) 20 mg PO BEDTIME [facility] Last Admin: 02/01/17 20:06 Dose: 20 mg Polyethylene Glycol (Miralax) 17 gm PO DAILY PRN PRN Reason: Constipation Sodium Chloride (Saline Flush) 10 ml FLUSH ASDIRECTED PRN PRN Reason: Keep Vein Open Last Admin: 02/01/17 20:10 Dose: 10 ml Discontinued Medications Acetaminophen (Tylenol Extra Strength) 1,000 mg PO ONETIME ONE Stop: 01/29/17 11:25 Last Admin: 01/29/17 11:27 Dose: 1,000 mg Acetaminophen (Tylenol) 650 mg PO Q4H PRN PRN Reason: Pain (Mild 1-3)/fever Hydrocodone Bitart/Acetaminophen ([place] 325-5 Mg) 1 tab PO Q4H PRN PRN Reason: Pain (moderate 4-6) Bacitracin (Bacitracin) 50,000 units .XX .STK-MED ONE Stop: 01/29/17 14:59 Last Admin: 01/29/17 14:58 Dose: 50,000 units Bupivacaine HCl (Marcaine 0.5%) 24 ml INJECT .STK-MED ONE Stop: 01/29/17 14:59 Last Admin: 01/29/17 14:58 Dose: 24 ml Fentanyl (Sublimaze) 50 mcg IV .STK-MED ONE Stop: 01/29/17 14:21 Sodium Chloride (Normal Saline) 1,000 mls @ 75 mls/hr IV ASDIRECTED [facility] Vancomycin HCl 1,000 mg/ (Sodium Chloride) 250 mls @ 167 mls/hr IV Q12H [facility] Vancomycin HCl 1,000 mg/ (Sodium Chloride) 250 mls @ 250 mls/hr IV Q12H [facility] Last Admin: 01/29/17 13:41 Dose: 250 mls/hr Lactated Ringer's (Ringers, Lactated) 1,000 mls @ 125 mls/hr IV ASDIRECTED [facility] Last Admin: 01/30/17 00:16 Dose: 125 mls/hr Vancomycin HCl 1,000 mg/Vancomycin HCl 500 mg/ Sodium Chloride 500 mls @ 333.333 mls/hr IV Q24H [facility] Last Admin: 01/31/17 09:46 Dose: 333.333 mls/hr Ketorolac Tromethamine (Toradol) 15 mg IVPUSH .STK-MED ONE Stop: 01/29/17 14:21 Metformin HCl (Glucophage) 425 mg PO ACDINNER [facility]) [facility] Metformin HCl (Glucophage) 1,275 mg PO BIDMEALS [facility] Last Admin: 01/29/17 19:52 Dose: Not Given Metformin HCl (Glucophage) 425 mg PO WITHDINNER [facility] Last Admin: 01/29/17 20:08 Dose: Not Given Midazolam HCl (Versed 1 Mg/Ml) 2 mg IV .STK-MED ONE Stop: 01/29/17 14:21 Non-Formulary Medication (Amlodipine Besylate/Benazepril [Amlodipine-Benazepril 5-20 Mg]) 1 tab MUCMEM DAILY [facility] Propofol (Diprivan 20 Ml) 320 mg IV .STK-MED ONE Stop: 01/29/17 14:21 Trimethoprim/Sulfamethoxazole (Septra Ds) 1 tab PO ONETIME ONE Stop: 01/29/17 11:03 Last Admin: 01/29/17 11:27 Dose: 1 tab - Exam General: Alert, Oriented, Cooperative Extremities: No Pedal Edema Skin: Other (Looks good on the ankle. Little serosanguineous drainage. No bright red color.) - Problem List & Annotations (1) Status post incision and drainage SNOMED Code(s): 243227307, 834099400 Code(s): Z98.890 - OTHER SPECIFIED POSTPROCEDURAL STATES Status: Acute Current Visit: Yes (2) Cellulitis of right leg SNOMED Code(s): 133765131 Code(s): L03.115 - CELLULITIS OF RIGHT LOWER LIMB Status: Acute Current Visit: Yes - Problem List Review Problem List Initiated/Reviewed/Updated: Yes - Plan Plan:: Staph aureus was grown out that's sensitive to clindamycin. She is currently on clindamycin. Continue current care.
[2017-02-02] MEDS: Acetaminophen/HYDROcodone 325-5 MG Tab PO PRN ×2 (10:20→19:55)
[2017-02-02] MEDS: Amitriptyline 25 MG Tab PO SCH (20:31)
[2017-02-02] MEDS: PARoxetine 20 MG Tab PO SCH (20:31)
[2017-02-03] MEDS: Clindamycin Phosphate 900 MG in Sodium Chloride 0.9% 100 ML IV SCH ×3 (01:03→15:46)
[2017-02-03] MEDS: Insulin Aspart 100 Units/ML 3 ML Pen SUBCUT SCH ×4 (08:04→17:36)
[2017-02-03] MEDS: Insuln Aspart Prot/Insulin Aspart 100 Units/ML 3 ML FlexPen SUBCUT SCH ×2 (08:07→17:36)
--- NOTE | 2017-02-03 08:26 | PCM.PN ---
- General Info Date of Service: 02/03/17 Admission Dx/Problem (Free Text): Patient states she was able to bear a little weight last night. She feels the pain is improved. Denies fevers. - Patient Data Vitals - Most Recent: Last Vital Signs Temp 98.5 F 02/03/17 06:05 Pulse 91 02/03/17 06:05 Resp 18 02/03/17 06:05 BP 137/98 H 02/03/17 06:05 Pulse Ox 97 02/03/17 06:05 Weight - Most Recent: 201 lb 12.8 oz I&O - Last 24 Hours: Intake & Output 02/02/17 02/03/17 02/03/17 22:59 06:59 14:59 Intake Total 135 Output Total 0 Balance 135 Lab Results Last 24 Hours: Laboratory Results - last 24 hr 02/02/17 02/02/17 02/02/17 Range/Units 11:34 16:06 20:33 POC Glucose 322 H D 169 H D 223 H (80-116) mg/dL 02/03/17 Range/Units 06:10 POC Glucose 193 H (80-116) mg/dL Med Orders - Current: Current Medications Acetaminophen (Tylenol) 650 mg PO Q4H PRN PRN Reason: Pain/Fever Hydrocodone Bitart/Acetaminophen ([place] 325-5 Mg) 1 tab PO Q3H PRN PRN Reason: Pain Last Admin: 02/02/17 10:20 Dose: 1 tab Hydrocodone Bitart/Acetaminophen ([place] 325-5 Mg) 2 tab PO Q3H PRN PRN Reason: pain Last Admin: 02/02/17 19:55 Dose: 2 tab Allopurinol (Zyloprim) 100 mg PO DAILY [facility] Last Admin: 02/02/17 08:17 Dose: 100 mg Amitriptyline HCl (Elavil) 75 mg PO BEDTIME [facility] Last Admin: 02/02/17 20:31 Dose: 75 mg Amlodipine Besylate (Norvasc) 5 mg PO DAILY [facility] Last Admin: 02/02/17 08:13 Dose: 5 mg Ascorbic Acid (Vitamin C) 250 mg PO DAILY [facility] Last Admin: 02/02/17 08:16 Dose: 250 mg Aspirin (Halfprin) 81 mg PO DAILY [facility] Last Admin: 02/02/17 08:06 Dose: 81 mg Atorvastatin Calcium (Lipitor) 20 mg PO DAILY [facility] Last Admin: 02/02/17 08:07 Dose: 20 mg Benazepril HCl (Lotensin) 20 mg PO DAILY [facility] Last Admin: 02/02/17 08:12 Dose: 20 mg Cholecalciferol (Vitamin D3) 1,000 units PO DAILY [facility] Last Admin: 02/02/17 08:17 Dose: 1,000 units Cyanocobalamin (Vitamin B12) 500 mcg PO DAILY [facility] Last Admin: 02/02/17 08:15 Dose: 500 mcg Docusate Sodium (Colace) 100 mg PO BID PRN PRN Reason: Constipation Last Admin: 01/30/17 16:34 Dose: 100 mg Enoxaparin Sodium (Lovenox) 30 mg SUBCUT DAILY [facility] Last Admin: 02/02/17 08:13 Dose: 30 mg Ferrous Sulfate (Ferrous Sulfate) 650 mg PO DAILY [facility] Last Admin: 02/02/17 08:05 Dose: 650 mg Sodium Chloride (Normal Saline) 250 mls @ 100 mls/hr IV ASDIRECTED [facility] Last Admin: 02/02/17 00:17 Dose: 100 mls/hr Clindamycin Phosphate 900 mg/ (Sodium Chloride) 106 mls @ 200 mls/hr IV Q8H [facility] Last Admin: 02/03/17 08:04 Dose: 200 mls/hr Insulin Aspart (Novolog Mix 70-30) 50 unit SUBCUT BIDMEALS [facility] Last Admin: 02/03/17 08:07 Dose: 50 units Insulin Aspart (Novolog) 0 unit SUBCUT TIDMEALS [facility] PRN Reason: Protocol Last Admin: 02/03/17 08:04 Dose: 2 units Metformin HCl (Glucophage) 1,275 mg PO DAILY [facility] Last Admin: 02/02/17 08:06 Dose: 1,275 mg Metformin HCl (Glucophage) 425 mg PO WITHDINNER [facility] Last Admin: 02/02/17 17:22 Dose: 425 mg Metoprolol Succinate (Toprol Xl) 50 mg PO DAILY [facility] Last Admin: 02/02/17 08:15 Dose: 50 mg Morphine Sulfate (Morphine) 2 mg IVPUSH Q2H PRN PRN Reason: Pain (severe 7-10) Last Admin: 01/30/17 13:56 Dose: 2 mg Multivitamins/Minerals/Vitamin C (Tab-A-[place]) 1 tab PO DAILY [facility] Last Admin: 02/02/17 08:15 Dose: 1 tab Ondansetron HCl (Zofran Odt) 4 mg PO Q6H PRN PRN Reason: nausea, able to take PO Paroxetine HCl (Paxil) 30 mg PO DAILY [facility] Last Admin: 02/02/17 08:16 Dose: 30 mg Paroxetine HCl (Paxil) 20 mg PO BEDTIME [facility] Last Admin: 02/02/17 20:31 Dose: 20 mg Polyethylene Glycol (Miralax) 17 gm PO DAILY PRN PRN Reason: Constipation Sodium Chloride (Saline Flush) 10 ml FLUSH ASDIRECTED PRN PRN Reason: Keep Vein Open Last Admin: 02/01/17 20:10 Dose: 10 ml Discontinued Medications Acetaminophen (Tylenol Extra Strength) 1,000 mg PO ONETIME ONE Stop: 01/29/17 11:25 Last Admin: 01/29/17 11:27 Dose: 1,000 mg Acetaminophen (Tylenol) 650 mg PO Q4H PRN PRN Reason: Pain (Mild 1-3)/fever Hydrocodone Bitart/Acetaminophen ([place] 325-5 Mg) 1 tab PO Q4H PRN PRN Reason: Pain (moderate 4-6) Bacitracin (Bacitracin) 50,000 units .XX .STK-MED ONE Stop: 01/29/17 14:59 Last Admin: 01/29/17 14:58 Dose: 50,000 units Bupivacaine HCl (Marcaine 0.5%) 24 ml INJECT .STK-MED ONE Stop: 01/29/17 14:59 Last Admin: 01/29/17 14:58 Dose: 24 ml Fentanyl (Sublimaze) 50 mcg IV .STK-MED ONE Stop: 01/29/17 14:21 Sodium Chloride (Normal Saline) 1,000 mls @ 75 mls/hr IV ASDIRECTED [facility] Vancomycin HCl 1,000 mg/ (Sodium Chloride) 250 mls @ 167 mls/hr IV Q12H [facility] Vancomycin HCl 1,000 mg/ (Sodium Chloride) 250 mls @ 250 mls/hr IV Q12H [facility] Last Admin: 01/29/17 13:41 Dose: 250 mls/hr Lactated Ringer's (Ringers, Lactated) 1,000 mls @ 125 mls/hr IV ASDIRECTED [facility] Last Admin: 01/30/17 00:16 Dose: 125 mls/hr Vancomycin HCl 1,000 mg/Vancomycin HCl 500 mg/ Sodium Chloride 500 mls @ 333.333 mls/hr IV Q24H [facility] Last Admin: 01/31/17 09:46 Dose: 333.333 mls/hr Ketorolac Tromethamine (Toradol) 15 mg IVPUSH .STK-MED ONE Stop: 01/29/17 14:21 Metformin HCl (Glucophage) 425 mg PO ACDINNER [facility] Metformin HCl (Glucophage) 850 mg PO WITHDINNER [facility] Metformin HCl (Glucophage) 1,275 mg PO BIDMEALS [facility] Last Admin: 01/29/17 19:52 Dose: Not Given Metformin HCl (Glucophage) 425 mg PO WITHDINNER [facility] Last Admin: 01/29/17 20:08 Dose: Not Given Midazolam HCl (Versed 1 Mg/Ml) 2 mg IV .STK-MED ONE Stop: 01/29/17 14:21 Non-Formulary Medication (Amlodipine Besylate/Benazepril [Amlodipine-Benazepril 5-20 Mg]) 1 tab MUCMEM DAILY [facility] Propofol (Diprivan 20 Ml) 320 mg IV .STK-MED ONE Stop: 01/29/17 14:21 Trimethoprim/Sulfamethoxazole (Septra Ds) 1 tab PO ONETIME ONE Stop: 01/29/17 11:03 Last Admin: 01/29/17 11:27 Dose: 1 tab - Exam General: Alert, Oriented Skin: Other (Right ankle has less swelling with no erythema. No drainage today.) - Problem List & Annotations (1) Status post incision and drainage SNOMED Code(s): 064592961, 181227156 Code(s): Z98.890 - OTHER SPECIFIED POSTPROCEDURAL STATES Status: Acute Current Visit: Yes (2) Cellulitis of right leg SNOMED Code(s): 017945401 Code(s): L03.115 - CELLULITIS OF RIGHT LOWER LIMB Status: Acute Current Visit: Yes - Problem List Review Problem List Initiated/Reviewed/Updated: Yes - Plan Plan:: Continue current care. Dr. Leonard to take over care in the a.m.
[2017-02-03] MEDS: Ferrous Sulfate 325 MG Tab PO SCH (09:03)
[2017-02-03] MEDS: atorvaSTATin 20 MG Tab PO SCH (09:04)
[2017-02-03] MEDS: Aspirin 81 MG Tab.EC PO SCH (09:04)
[2017-02-03] MEDS: Enoxaparin 30 MG/0.3 ML Syringe SUBCUT SCH (09:05)
[2017-02-03] MEDS: amLODIPine 5 MG Tab PO SCH (09:06)
[2017-02-03] MEDS: Ascorbic Acid 500 MG Tab PO SCH (09:07)
[2017-02-03] MEDS: Multivitamin Tab PO SCH (09:07)
[2017-02-03] MEDS: Cyanocobalamin (Vitamin B12) 500 MCG Tab PO SCH (09:07)
[2017-02-03] MEDS: Metoprolol Succinate 50 MG Tab.ER PO SCH (09:07)
[2017-02-03] MEDS: Cholecalciferol (Vitamin D3) 1,000 Unit Tab PO SCH (09:08)
[2017-02-03] MEDS: Allopurinol 100 MG Tab PO SCH (09:09)
[2017-02-03] MEDS: Acetaminophen/HYDROcodone 325-5 MG Tab PO PRN ×2 (13:40→20:57)
[2017-02-03] MEDS: Sodium Chloride 0.9% 250 ML IV SCH (15:55)
[2017-02-03] MEDS: Sodium Chloride 0.9% 10 ML Syringe FLUSH PRN (16:38)
[2017-02-03] MEDS: Amitriptyline 25 MG Tab PO SCH (20:56)
[2017-02-03] MEDS: PARoxetine 20 MG Tab PO SCH (20:56)
[2017-02-04] MEDS: Clindamycin Phosphate 900 MG in Sodium Chloride 0.9% 100 ML IV SCH ×3 (01:35→16:13)
[2017-02-04] MEDS: Sodium Chloride 0.9% 250 ML IV SCH ×2 (09:20→16:13)
[2017-02-04] MEDS: Insuln Aspart Prot/Insulin Aspart 100 Units/ML 3 ML FlexPen SUBCUT SCH ×2 (09:40→18:18)
[2017-02-04] MEDS: Insulin Aspart 100 Units/ML 3 ML Pen SUBCUT SCH ×2 (09:40→12:02)
[2017-02-04] MEDS: Ferrous Sulfate 325 MG Tab PO SCH (09:50)
[2017-02-04] MEDS: atorvaSTATin 20 MG Tab PO SCH (09:52)
[2017-02-04] MEDS: Aspirin 81 MG Tab.EC PO SCH (09:52)
[2017-02-04] MEDS: amLODIPine 5 MG Tab PO SCH (09:53)
[2017-02-04] MEDS: Enoxaparin 30 MG/0.3 ML Syringe SUBCUT SCH (09:54)
[2017-02-04] MEDS: Multivitamin Tab PO SCH (09:56)
[2017-02-04] MEDS: Cyanocobalamin (Vitamin B12) 500 MCG Tab PO SCH (10:19)
[2017-02-04] MEDS: Cholecalciferol (Vitamin D3) 1,000 Unit Tab PO SCH (10:20)
[2017-02-04] MEDS: Allopurinol 100 MG Tab PO SCH (10:20)
[2017-02-04] MEDS: Ascorbic Acid 500 MG Tab PO SCH (10:20)
[2017-02-04] MEDS: Metoprolol Succinate 50 MG Tab.ER PO SCH (10:21)
[2017-02-04] MEDS: Acetaminophen/HYDROcodone 325-5 MG Tab PO PRN ×2 (10:34→20:45)
[2017-02-04] MEDS: Sodium Chloride 0.9% 10 ML Syringe FLUSH PRN (16:16)
[2017-02-04] MEDS: PARoxetine 20 MG Tab PO SCH (20:44)
[2017-02-04] MEDS: Amitriptyline 25 MG Tab PO SCH (20:44)
[2017-02-05] MEDS: Clindamycin Phosphate 900 MG in Sodium Chloride 0.9% 100 ML IV SCH ×2 (01:22→07:45)
--- NOTE | 2017-02-05 07:12 | PN ---
DATE SEEN: 02/04/2017 DIAGNOSIS: Septic ankle, right tibiotalar articulation. SUBJECTIVE: The patient states that her pain is about a 4. She is able to weight bear and do well with occupational therapy. OBJECTIVE: Her vital signs are stable, and the incision appears to be healing well. Minimal drainage. No significant swelling. No erythema. The dressing had been on for over 24 hours, there was only about a nickel-sized area of drainage there, and it was serous drainage. Minimal discomfort with range of motion. PLAN: The patient has visited with Ralph, our social science teacher, and Home Health has been set up for her. The patient will be discharged tomorrow morning. The clindamycin will be discontinued tomorrow morning, and then oral clindamycin will be administered for at least 2 weeks with followup C-reactive proteins. /[id number] SALO/ELISABETH
[2017-02-05] MEDS: Insuln Aspart Prot/Insulin Aspart 100 Units/ML 3 ML FlexPen SUBCUT SCH (07:53)
[2017-02-05] MEDS: Ferrous Sulfate 325 MG Tab PO SCH (08:29)
[2017-02-05] MEDS: atorvaSTATin 20 MG Tab PO SCH (08:30)
[2017-02-05] MEDS: Aspirin 81 MG Tab.EC PO SCH (08:30)
[2017-02-05] MEDS: amLODIPine 5 MG Tab PO SCH (08:33)
[2017-02-05] MEDS: Multivitamin Tab PO SCH (08:33)
[2017-02-05] MEDS: Enoxaparin 30 MG/0.3 ML Syringe SUBCUT SCH (08:33)
[2017-02-05] MEDS: Metoprolol Succinate 50 MG Tab.ER PO SCH (08:34)
[2017-02-05] MEDS: Allopurinol 100 MG Tab PO SCH (08:34)
[2017-02-05] MEDS: Cyanocobalamin (Vitamin B12) 500 MCG Tab PO SCH (08:34)
[2017-02-05] MEDS: Cholecalciferol (Vitamin D3) 1,000 Unit Tab PO SCH (08:34)
[2017-02-05] MEDS: Ascorbic Acid 500 MG Tab PO SCH (08:34)
[2017-02-05 08:36] VITALS: BP 136/70
--- NOTE | 2017-02-06 03:02 | DISCH ---
DISCHARGE DATE: 02/05/2017 PROBLEM: Septic right ankle with associated cellulitis. HISTORY OF HOSPITAL COURSE: This patient was admitted through the emergency room to the [facility] unit for the above diagnosis. She was taken to surgery where irrigation and debridement were carried out. The patient was started on vancomycin. Cultures and sensitivities showed that it was sensitive to vancomycin but was either more sensitive to clindamycin, so she was changed to clindamycin IV. While in the hospital, the patient had moderate amount of pain in the ankle and after several days of antibiotics, the patient was able to start working with PT and OT for discharge home with Home Health. At the time of discharge, the patient's vital signs are stable. There is no erythema of the ankle, and the patient has minimal swelling. Incisions healing well. There is no drainage. COMPLICATIONS: None. DIET: Usual diabetic diet. MEDICATIONS: Resume preadmission medication usual dosage and frequency with exception of her prednisone, which was started for possible gout. 1. The patient will be discharged on clindamycin 300 mg p.o. every 6 hours for 2 weeks. 2. Hydrocodone 5/325, prescription #40 given. COMPLICATIONS: 1. None. RETURN APPOINTMENT: The patient will return to see me on SaturdayFebruary 11. Any problems in the meantime with pain, drainage, redness; she will contact us or return to the emergency room. ACTIVITY: 1. Up with walker as tolerated. 2. Home Health. /[id number] SALO/ELISABETH
== END 2017-02-05 15:55 | disposition home health service (06) | DRG 317 ==
LOC: FB.ED 10:28 → FB.MS 12:31
PROVIDERS: ADMIT Emergency Medicine; ATTEND Orthopaedic Surgery
PROC: 0JDN0ZZ Extraction of Right Lower Leg Subcutaneous Tissue and Fascia, Open Approach (ICD-10-PCS; principal; 2017-01-29)
PROC: 0S9F0ZX Drainage of Right Ankle Joint, Open Approach, Diagnostic (ICD-10-PCS; 2017-01-29)
DX: M00.9 Pyogenic arthritis, unspecified (principal); L03.115 Cellulitis of right lower limb; I12.9 Hypertensive chronic kidney disease with stage 1 through stage 4 chronic kidney disease, or unspecified chronic kidney disease; E11.22 Type 2 diabetes mellitus with diabetic chronic kidney disease; N18.3 Chronic kidney disease, stage 3 (moderate); Z87.891 Personal history of nicotine dependence; Z79.4 Long term (current) use of insulin; F32.9 Major depressive disorder, single episode, unspecified; M19.90 Unspecified osteoarthritis, unspecified site; M10.9 Gout, unspecified; E78.5 Hyperlipidemia, unspecified; Z79.82 Long term (current) use of aspirin; F03.90 Unspecified dementia, unspecified severity, without behavioral disturbance, psychotic disturbance, mood disturbance, and anxiety
CPT/HCPCS: 36415; 73600-RT; 80048; 80053; 82962; 85025; 86140; 87040; 87070; 87075; 87205; 94150; 97110-GO; 97116-GP; 97161-GP; 97165-GO; 97530-GO; 97530-GO-KX; 97530-GP; 97535-GO; 99283; 99284; A9270-GY; J1650; J1885; J2250; J2270; J2704; J3010; J3370; J7030; J7040; J7050; J7120; S0077

== ENCOUNTER 2017-02-14 14:55 | Inpatient (IN) | payer BC, MEDICARE ==
[2017-02-14] MEDS: Sodium Chloride 0.9% 1,000 ML IV SCH (17:00)
[2017-02-14] MEDS ORDERED: Zolpidem 5 MG Tab PO PRN (18:23)
[2017-02-14] MEDS ORDERED: Acetaminophen 325 MG Tab PO PRN (18:23)
[2017-02-14] MEDS: Piperacillin/Tazobactam 3.375 GM in Sodium Chloride 0.9% 50 ML IV SCH (21:05)
[2017-02-14] MEDS ORDERED: Vancomycin 1,000 MG SDV ONE (21:30)
[2017-02-15] MEDS: Sodium Chloride 0.9% 1,000 ML IV SCH (01:30)
[2017-02-15] MEDS: Piperacillin/Tazobactam 3.375 GM in Sodium Chloride 0.9% 50 ML IV SCH ×2 (02:30→08:19)
--- NOTE | 2017-02-15 08:05 | PCM.HP ---
H&P History of Present Illness - General Date of Service: 02/15/17 Admit Problem/Dx: Admission Diagnosis/Problem Admission Diagnosis/Problem CVA, Cerebrovascular accident Source of Information: Patient, Old Records - History of Present Illness Initial Comments - Free Text/Narative: 76 yo ffemale c/o dizziness. She describes it as spinning,and lightheadedness as well,to shere ,when she gets up,she fells like she will faint. She has no chest pain,but has had some shortness of breath. No headache. She was recently admitted for septic arthritis of the right ankle was treated by incision and drainage and IV antibiotics. She complains of minimal pain on that ankle. She has a history of type 2 diabetes stable, hypertension well controlled chronic kidney disease and gout which is stable. denies Pain Score (Numeric/FACES): 0 asleep Pain Score (Numeric/FACES): 0 - Related Data Allergies/Adverse Reactions: Allergies Allergy/AdvReac Type Severity Reaction Status Date / Time No Known Allergies Allergy Verified 02/14/17 15:08 Home Medications: Home Meds Amitriptyline [Elavil] 75 mg PO BEDTIME 04/20/15 [History] Ascorbic Acid [Vitamin C] 250 mg PO DAILY 04/20/15 [History] Aspirin [Halfprin] 81 mg PO DAILY 04/20/15 [History] Cholecalciferol (Vitamin D3) [Vitamin D3] 1,000 units PO DAILY 04/20/15 [History ] Cyanocobalamin (Vitamin B-12) [Vitamin B-12] 500 mcg PO DAILY 04/20/15 [History] Ferrous Sulfate 650 mg PO DAILY 04/20/15 [History] Insuln Asp Prot/Insulin Aspart [NovoLOG Mix 70-30] 50 units SUBCUT BIDMEALS 09/29 [History] Multivitamin [Daily Multiple Vitamin] 1 tab PO DAILY 04/20/15 [History] PARoxetine [Paxil] 30 mg PO DAILY 04/20/15 [History] atorvaSTATin [Lipitor] 20 mg PO DAILY 04/20/15 [History] Allopurinol [Zyloprim] 100 mg PO DAILY 01/29/17 [History] Metoprolol Succinate [Toprol XL] 50 mg PO DAILY 01/29/17 [History] PARoxetine HCl [Paxil] 20 mg PO BEDTIME 01/29/17 [History] Prednisone [IJD: Prednisone] 5 mg PO DAILY 01/29/17 [History] amLODIPine Besylate/Benazepril [Amlodipine-Benazepril 5-20 MG] 1 cap PO DAILY [History] metFORMIN [Glucophage] 1,275 mg PO DAILY 01/29/17 [History] Insulin Asp Prot/Insulin Asp [NovoLOG Mix 70-30] 50 unit SUBCUT BIDAC 02/14/17 [ History] Past Medical History HEENT History: Reports: Cataract Cardiovascular History: Reports: Hypertension Other Cardiovascular History: currently heart rhythm study Respiratory History: Reports: None Gastrointestinal History: Reports: Other (See Below) Other Gastrointestinal History: colon cancer x2 Genitourinary History: Reports: Chronic Renal Insuffiency SUPPORT SERVICES TECH History: Reports: Musculoskeletal History: Reports: Arthritis, Gout, Other (See Below) Other Musculoskeletal History: has been treated for gout recently. Psychiatric History: Reports: Anxiety, Depression Endocrine/Metabolic History: Reports: Diabetes, Type II, Obesity/BMI 30+ Hematologic History: Reports: Anemia, Iron Deficiency Oncologic (Cancer) History: Reports: Colon Other Oncologic History: colon CA x 2. Dermatologic History: Reports: Other (See Below) Other Dermatologic History: had cellulitis to lower right ankle area. nervous condition, picks @ arms bilat & face. - Infectious Disease History Infectious Disease History: Reports: Chicken Pox, Measles - Past Surgical History HEENT Surgical History: Reports: Cataract Surgery Cardiovascular Surgical History: Reports: None GI Surgical History: Reports: Colon, Colonoscopy, Other (See Below) Female Surgical History: Reports: Section Other Female Surgeries/Procedures: CS x 1 Musculoskeletal Surgical History: Reports: Other (See Below) Other Musculoskeletal Surgeries/Procedures:: Back surgery Dermatological Surgical History: Reports: Other (See Below) Social & Family History - Family History Family Medical History: Noncontributory - Tobacco Use Smoking Status *Q: Former Smoker Years of Tobacco use: 40 Packs/Tins Daily: 2 Used Tobacco, but Quit: Yes Month Tobacco Last Used: september Second Hand Smoke Exposure: No - Caffeine Use Caffeine Use: Reports: Coffee Other Caffeine Use: 2-3 cups - Recreational Drug Use Recreational Drug Use: No H&P Review of Systems - Review of Systems: Review Of Systems: ROS reveals no pertinent complaints other than HPI. Exam - Exam Exam: See Below - Vital Signs Vital Signs: Last Vital Signs Temp 98.3 F 02/15/17 06:00 Pulse 76 02/15/17 06:00 Resp 18 02/15/17 06:00 BP 133/77 02/15/17 06:00 Pulse Ox 95 02/15/17 06:00 Weight: 89.675 kg - Exam General: Alert, Oriented, 4 HEENT: PERRLA, Hearing Intact, Mucosa Moist & [place], Nares Patent, Normal Nasal Septum, Posterior Pharynx Clear, Conjunctiva Clear, EOMI, EACs Clear, TMs Clear Neck: Supple, Trachea Midline, 2 Lungs: Clear to Auscultation, Normal Respiratory Effort Cardiovascular: Regular Rate, Regular Rhythm, Systolic Murmur GI/Abdominal Exam: Normal Bowel Sounds, Soft, Non-Tender, No Organomegaly, No Distention, No Abnormal Bruit, No Mass, Pelvis Stable (Female) Exam: Normal External Exam, Normal Speculum Exam, Normal Bimanual Exam Rectal (Female) Exam: Normal Exam, Normal Rectal Tone Back Exam: Normal Inspection, Full Range of Motion, NT Extremities: Normal Inspection, Normal Range of Motion, Non-Tender, No Pedal Edema, Normal Capillary Refill Skin: Warm, Dry, Intact Neurological: Cranial Nerves Intact, Reflexes Equal Bilateral Neuro Extensive - Mental Status: Alert, Oriented x3, Normal Mood/Affect, Normal Cognition Neuro Extensive - Motor, Sensory, Reflexes: CN II-XII Intact, Normal Gait, Normal Reflexes Psychiatric: Alert, Normal Affect, Normal Mood - Patient Data Lab Results Last 24 hrs: Laboratory Results - last 24 hr 02/14/17 02/15/17 02/15/17 Range/Units 21:00 06:13 06:35 WBC (4.5-12.0) X10-3/uL RBC (3.23-5.20) x10(6)uL Hgb (11.5-15.5) g/dL Hct (30.0-51.3) % MCV (80-96) fL MCH (27.7-33.6) pg MCHC (32.2-35.4) g/dL RDW (11.5-15.5) % Plt Count (125-369) X10(3)uL MPV (7.4-10.4) fL Add Manual Diff Neutrophils % (Manual) (46-82) % Band Neutrophils % (0-6) % Lymphocytes % (Manual) (13-37) % Monocytes % (Manual) (4-12) % Eosinophils % (Manual) (0-5) % Basophils % (Manual) (0-2) % Sodium 136 (135-145) mmol/L Potassium 4.9 (3.5-5.3) mmol/L Chloride 102 (100-110) mmol/L Carbon Dioxide 25 (23-29) mmol/L BUN 15 (8-23) mg/dL Creatinine 1.3 (0.6-1.3) mg/dL Est Cr Clr Drug Dosing 31.95 mL/min Estimated GFR (MDRD) 40 L (>60) BUN/Creatinine Ratio 11.5 (9-20) Glucose 142 H (80-116) mg/dL POC Glucose 152 H 132 H (80-116) mg/dL Calcium 8.8 (8.6-10.2) mg/dL Total Bilirubin 0.5 (0.1-1.3) mg/dL AST 27 D (5-27) IU/L ALT 27 H D (14-26) IU/L Alkaline Phosphatase 70 (56-112) IU/L C-Reactive Protein < 0.5 (0.0-1.0) mg/dL Total Protein 6.9 (6.0-8.0) g/dL Albumin 2.9 L (3.2-4.6) g/dL Globulin 4.0 g/dL Albumin/Globulin Ratio 0.7 // Range/Units 06:35 WBC 6.4 (4.5-12.0) X10-3/uL RBC 3.74 (3.23-5.20) x10(6)uL Hgb 10.5 L (11.5-15.5) g/dL Hct 31.8 (30.0-51.3) % MCV 84.9 (80-96) fL MCH 27.9 (27.7-33.6) pg MCHC 32.9 (32.2-35.4) g/dL RDW 13.9 (11.5-15.5) % Plt Count 473 H (125-369) X10(3)uL MPV 6.2 L (7.4-10.4) fL Add Manual Diff Yes Neutrophils % (Manual) 58 (46-82) % Band Neutrophils % 2 (0-6) % Lymphocytes % (Manual) 25 (13-37) % Monocytes % (Manual) 12 (4-12) % Eosinophils % (Manual) 2 (0-5) % Basophils % (Manual) 1 (0-2) % Sodium (135-145) mmol/L Potassium (3.5-5.3) mmol/L Chloride (100-110) mmol/L Carbon Dioxide (23-29) mmol/L BUN (8-23) mg/dL Creatinine (0.6-1.3) mg/dL Est Cr Clr Drug Dosing mL/min Estimated GFR (MDRD) (>60) BUN/Creatinine Ratio (9-20) Glucose (80-116) mg/dL POC Glucose (80-116) mg/dL Calcium (8.6-10.2) mg/dL Total Bilirubin (0.1-1.3) mg/dL AST (5-27) IU/L ALT (14-26) IU/L Alkaline Phosphatase (56-112) IU/L C-Reactive Protein (0.0-1.0) mg/dL Total Protein (6.0-8.0) g/dL Albumin (3.2-4.6) g/dL Globulin g/dL Albumin/Globulin Ratio Result Diagrams: 02/15/17 06:35 02/15/17 06:35 *Q Meaningful Use (ADM) - VTE *Q VTE Criteria *Q: VTE Mechanical Contraindications *Q: Bilat Lower Injury/Burn VTE Anticoagulation Contraindications: Medical/Procedure Contrai - Stroke *Q Stroke Criteria *Q: - AMI *Q AMI Criteria *Q: - Problem List (1) Dizziness and giddiness SNOMED Code(s): 522947546 ICD Code: R42 - DIZZINESS AND GIDDINESS Status: Acute Current Visit: Yes (2) Gout SNOMED Code(s): 65295315 ICD Code: M10.9 - GOUT, UNSPECIFIED Status: Acute Current Visit: No Qualifiers: Gout site: foot (3) HTN (hypertension) SNOMED Code(s): 21491476 ICD Code: I10 - ESSENTIAL (PRIMARY) HYPERTENSION Status: Acute Current Visit: No Qualifiers: Hypertension type: essential hypertension (4) Status post incision and drainage SNOMED Code(s): 950480678, 458490676 ICD Code: Z98.890 - OTHER SPECIFIED POSTPROCEDURAL STATES Status: Acute Current Visit: No (5) CKD (chronic kidney disease) stage 3, GFR 30-59 ml/min SNOMED Code(s): 547699187 ICD Code: N18.3 - CHRONIC KIDNEY DISEASE, STAGE 3 (MODERATE) Status: Chronic Current Visit: No (6) Depression SNOMED Code(s): 76622230 ICD Code: F32.9 - MAJOR DEPRESSIVE DISORDER, SINGLE EPISODE, UNSPECIFIED Status: Chronic Current Visit: No Qualifiers: Depression Type: major depressive disorder (7) Diabetes type 2, controlled SNOMED Code(s): 90108367 ICD Code: E11.9 - TYPE 2 DIABETES MELLITUS WITHOUT COMPLICATIONS Status: Chronic Current Visit: No Qualifiers: Diabetes mellitus complication status: without complication (8) HLD (hyperlipidemia) SNOMED Code(s): 22600661 ICD Code: E78.5 - HYPERLIPIDEMIA, UNSPECIFIED Status: Chronic Current Visit: No Qualifiers: Hyperlipidemia type: unspecified Problem List Initiated/Reviewed/Updated: Yes Orders Last 24hrs: Active Orders 24 hr Category Date Time Status Blood Glucose Check, Bedside [RC] QIDACANDBED Care 02/14/17 18:23 Active Notify Provider Vital Signs [RC] ASDIRECTED Care 02/14/17 18:24 Active Oxygen Therapy [RC] PRN Care 02/14/17 18:23 Active Vital Signs [RC] Q4H Care 02/14/17 18:23 Active OT Evaluation and Treatment [CONS] Routine Cons 02/15/17 08:00 Ordered PT Evaluation and Treatment [CONS] Routine Cons 02/15/17 08:00 Ordered Regular Diet [DIET] Diet 02/14/17 Dinner Ordered Ang Head wo Cont [MR] Stat Exams 02/14/17 18:37 Ordered VANCOMYCIN TROUGH [CHEM] Timed Lab 02/17/17 20:30 Ordered Acetaminophen [Tylenol] Med 02/14/17 18:23 Active 650 mg PO Q4H PRN Piperacillin/Tazobactam [Zosyn] 3.375 gm Med 02/14/17 20:00 Active Sodium Chloride 0.9% [Normal Saline] 50 ml IV Q6H Vancomycin 1,000 mg Med 02/14/17 21:00 Active Sodium Chloride 0.9% [Normal Saline] 250 ml IV Q24H Vancomycin Pharmacy to Dose [Pharmacy to Dose - Med 02/14/17 19:15 Pending Vancomycin] 1 dose .XX ASDIRECTED Zolpidem [Ambien] Med 02/14/17 18:23 Active 5 mg PO BEDTIME PRN Anticoagulation Contraindications VTE [AST] Per Unit Oth 02/14/17 18:23 Ordered Routine VTE Mechanical Contraindications [AST] Per Unit Routine Oth 02/14/17 18:23 Ordered Resuscitation Status Routine Resus Stat 02/14/17 18:23 Ordered Medication Orders Acetaminophen (Tylenol) 650 mg PO Q4H PRN PRN Reason: Pain (Mild 1-3)/fever Sodium Chloride (Normal Saline) 1,000 mls @ 150 mls/hr IV ASDIRECTED [facility] Last Admin: 02/15/17 01:30 Dose: 150 mls/hr Infusion: 02/14/17 23:41 Dose: 150 mls/hr Admin: 02/14/17 17:00 Dose: 150 mls/hr Vancomycin HCl 1,000 mg/ (Sodium Chloride) 250 mls @ 167 mls/hr IV Q24H [facility] Last Admin: 02/14/17 21:56 Dose: 167 mls/hr Piperacillin Sod/Tazobactam (Sod 3.375 gm/ Sodium Chloride) 50 mls @ 100 mls/ hr IV Q6H [facility] Last Admin: 02/15/17 02:30 Dose: 100 mls/hr Admin: 02/14/17 21:05 Dose: 100 mls/hr Vancomycin HCl (Pharmacy To Dose - Vancomycin) 1 dose .XX ASDIRECTED [facility] Zolpidem Tartrate (Ambien) 5 mg PO BEDTIME PRN PRN Reason: Sleep Last Admin: 02/15/17 00:06 Dose: 5 mg Assessment/Plan Comment:: I will resume her home medications, and asked physical and occupational therapy to see her for evaluation. I discontinued IV antibiotics because I do not feel she has any overt or occult infection at this time. I anticipate a quick recovery and discharge.
[2017-02-15] MEDS ORDERED: Ketorolac 30 MG/ML SDV IVPUSH PRN (08:24)
[2017-02-15] MEDS ORDERED: LORazepam 0.5 MG Tab PO PRN (08:24)
[2017-02-15] MEDS ORDERED: Gabapentin 300 MG Cap PO SCH (08:30)
--- NOTE | 2017-02-15 08:38 | CT ---
INDICATION: Lightheaded today, question CVA. CT HEAD WITHOUT CONTRAST: Serial contiguous 2.5 and 5-mm sections were obtained through the brain without contrast 02/14/2017 and compared with 2016, again revealing no shift of midline structures or ventricular abnormalities for age. Frontal cortical atrophy is suggested as previously - asymmetrical cortical atrophy. Calcifications are noted in the vertebral and internal carotid arteries, as previously. There is again suggestion of cerebellar atrophy of mild degree. There appears to be some asymmetrical low-density in the area of the anterior limb of the right internal capsule, which appears to be more prominent than on the previous study and could represent an evolving lacunar infarct. No other definite abnormal areas of density were identified. No bleeding site or hematoma was seen. Visualized paranasal sinuses and mastoid air cells were well aerated. No cranial abnormality was seen. IMPRESSION: 1. No definite acute intracranial abnormality. 2. There is a low-density area at the anterior limb of the right internal capsule, which could represent an evolving lacunar infarct and should be correlated clinically. 3. Vascular calcifications are noted, compatible with cerebrovascular disease. 4. Mild frontal cortical atrophy is again noted with suggestion of cerebellar atrophy also present. Report was called to Dr. Mejias at 1705 hours, 02/14/2017. Total Exam DLP = 949.36 mGy-cm. MTDD
[2017-02-15] MEDS ORDERED: Insuln Aspart Prot/Insulin Aspart 100 Units/ML 3 ML FlexPen SUBCUT SCH (08:45)
[2017-02-15] MEDS ORDERED: Ferrous Sulfate 325 MG Tab PO SCH (09:00)
[2017-02-15] MEDS ORDERED: amLODIPine 5 MG Tab PO SCH (09:00)
[2017-02-15] MEDS ORDERED: Multivitamin Tab PO SCH (09:00)
[2017-02-15] MEDS ORDERED: atorvaSTATin 20 MG Tab PO SCH (09:00)
[2017-02-15] MEDS ORDERED: Cyanocobalamin (Vitamin B12) 500 MCG Tab PO SCH (09:00)
[2017-02-15] MEDS ORDERED: PARoxetine 20 MG Tab PO SCH ×2 (09:00→21:00)
[2017-02-15] MEDS ORDERED: predniSONE 5 MG Tab PO SCH (09:00)
[2017-02-15] MEDS ORDERED: Ascorbic Acid 500 MG Tab PO SCH (09:00)
[2017-02-15] MEDS ORDERED: Cholecalciferol (Vitamin D3) 1,000 Unit Tab PO SCH (09:00)
[2017-02-15] MEDS ORDERED: Allopurinol 100 MG Tab PO SCH (09:00)
--- NOTE | 2017-02-15 10:27 | ER ---
DATE SEEN: 02/14/2017 HISTORY OF PRESENT ILLNESS: Christina is a 76-year-old woman who felt lightheaded, has felt hot and cold today and was restless, and lying down more than usual. She does not have any history of previous head trauma, fever, chills, cough, sore throat, sinusitis, nasal congestion, chest pain, shortness of breath, pneumonia, urinary tract infection, frequency, urgency, dysuria, or gastrointestinal symptoms diarrhea, nausea, vomiting, or constipation. Today, she was lying down, more restless than usual. She was brought in by her daughter. She denies chest pain. She has some mild shortness of breath in which she feels like she is going to pass out. Otherwise, she does not feel she is short of breath. When she got up this morning, she felt lightheaded. She had surgery on 02/04/2017 of the anterior joint infection, a washout. She prior to that was started on antibiotic. Currently on the last day of her TMP/SMX. Also she is on the last day of her clindamycin 150 mg q.i.d. started on the . MEDICATIONS: 1. Metformin daily. 2. Atorvastatin daily. 3. Amlodipine/benazepril 5/20. 4. TMP/SMX q.12 hours. 5. Prednisone 5 mg daily. 6. Paxil 30 mg daily, 20 mg at bedtime. 7. Multivitamins. 8. Metoprolol succinate. 9. Toprol-XL 50 mg daily. 10.Insulin NovoLog 50 units subcu b.i.d. meals. 11.Ferrous sulfate 650 mg daily. 12.Cyanocobalamin B12 500 mcg daily. 13.Vitamin D 1000 daily. 14.Aspirin 81 mg daily. 15.Ascorbic acid 250 mg daily. 16.Amitriptyline 75 mg b.i.d. 17.Allopurinol 100 mg daily. ALLERGIES: None. REVIEW OF SYSTEMS: Negative except as noted above in the HPI. PAST MEDICAL HISTORY: She has had a bladder infection in the past treated with Septra. She has depression, hypertension, diabetes, stasis dermatitis, anemia, upper teeth absent, previous hernia surgeries, gout. SOCIAL HISTORY: Alcohol negative. Smoking negative. Illicit drugs negative. PHYSICAL EXAMINATION: VITAL SIGNS: Blood pressure 131/64, heart rate 99, respirations 17, oxygen saturation 99%, temperature 36.7 degrees Centigrade. GENERAL: Alert woman, overweight, has pear-shaped habitus, markedly obese. Weight is up 91.5 kg, BMI 34.1 kg/mg/m2. HEENT: Upper dentures. PERRLA intact. Pharynx without abnormality. Mucosa is moist. NECK: No thyromegaly or masses in the neck. No cervical adenopathy. HEART: She has murmur that radiates from the chest to the neck. Systolic, crescendo decrescendo, left parasternal greater than right parasternal. No heave. There is a splitting S1. Sinus rhythm. LUNGS: Clear to auscultation without rales, rhonchi, or wheezes. ABDOMEN: Soft, but has markedly increased abdominal girth. No tenderness in the abdomen. EXTREMITIES: Without tenderness. She has right anterior talotibial area for the anterior washout occurred. Incision is healing. No evidence for erythema. No tenderness in the lower extremities. No swelling or edema. Dorsalis pedis intact bilaterally. No compromised skin. SKIN: Clean. Incision is infected. DIAGNOSTIC STUDIES: CT of the head reveals abnormality. The suggestion, lacunar infarct of the right anterior internal capsule. Ventricles are asymmetrical, which may be a variation of normal. LABORATORY WORK: White count 10,100, PMNs 62, lymphocytes 25, monos 11, platelets 571,000. Thrombocythemia, etiology indeterminate. CMP; sodium 137, potassium 4.4, chloride 99, CO2 of 24, BUN 19, creatinine 1.7, GFR 36. BUN/ creatinine ratio 13.6. No suggestion of dehydration. Glucose 69, lactic acid 3.3. AST 32 , ALT 31. Troponin less than 0.01. Blood cultures, pending. Chest x-ray was without infiltrate. Actually, no suggestion of an infection. No cardiomegaly. ASSESSMENT: 1. Rule out intercurrent recurrent infections from previous cellulitis with a right anterior calcaneal tibial washout. 2. This is suggested by elevated lactic acid of 3.3, CRP pending, blood culture is pending. White count does not suggest elevation, however, because of her age, may not be elevated. 3. She has thrombocythemia, etiology indeterminate. 4. Obesity. 5. Gout history. 6. Chronic urinary tract infections. 7. Depression. 8. Anxiety. 9. Diabetes with stasis dermatitis and peripheral neuropathy. 10.Anemia, which is stable. She is taking ferrous sulfate, stable. 11.EKG; sinus rhythm, without other abnormality. There is no evidence for myocardial infarction or ischemia. PLAN: Admit. Defer use of antibiotics; however, the patient has finished her last dose of clindamycin. It is very possible she has recurrence in infection. Blood cultures are pending. CRP pending. If her temperature rises tonight, consider starting antibiotics, Zosyn and vancomycin. /[id number] QUINTON/ELISABETH MCNEILLD
--- NOTE | 2017-02-15 10:41 | CR ---
INDICATION: Lightheaded, diaphoresis. CHEST: An AP upright portable view of the chest was obtained 02/14/2017. No comparisons were available, except for a CT of the chest dated 01/08/2013. Evidence of exogenous obesity is noted. The heart is normal in size and shape. The aorta is tortuous with minimal calcification in the arch. Degenerative changes are noted in the spine with bridging hyperostotic spurs. An active infiltrate or effusion was not identified. Lungs appear to be somewhat hyperaerated. IMPRESSION: No acute process. MTDD
[2017-02-15 13:47] VITALS: BP 128/73
[2017-02-15] MEDS ORDERED: INSULIN ASPART SUBCUT SCH (17:30)
[2017-02-15] MEDS ORDERED: INSULIN ASPART PROTAMINE SUBCUT SCH (17:30)
[2017-02-15] MEDS ORDERED: [UNRECOGNIZED DRUG - OTHER] SUBCUT SCH (17:30)
[2017-02-15] MEDS ORDERED: Amitriptyline 25 MG Tab PO SCH (21:00)
[2017-02-15] MEDS ORDERED: Aspirin 81 MG Tab.EC PO SCH (21:00)
--- NOTE | 2017-02-16 05:19 | DISCH ---
DISCHARGE DATE: 02/15/2017 REASON FOR ADMISSION: 1. Vertigo, dizziness. 2. Ankle infection. 3. Hypertension. 4. Type 2 diabetes. 5. Anxiety, depression. CONSULTATIONS: None. BRIEF HISTORY: This is a 76-year-old female who was brought in on the after a few hours of vertigo which she describes as dizziness and spinning sensation. She was admitted to rule out stroke. A CT done at the initial visit in the ER did not show any acute intracranial abnormality. In the morning when I saw her, she complained of no further dizziness. Physical and Occupational Therapy saw her and cleared her to be able to go back home. I also examined the ankle joint and did not see any sign of infection. As such, I discontinued antibiotics. She will return home today on the same medications from home. Plan is followup in the office of Dr. Bach next week. Please note that I spent more than 35 minutes in the discharge of the patient. /[id number] REENA/ELISABETH
== END 2017-02-15 16:20 | disposition home or self-care (01) | DRG 111 ==
LOC: FB.ED 14:55 → OBSVTOIN 18:17 → FB.MS 18:17
PROVIDERS: ADMIT Emergency Medicine; ATTEND Family Medicine
DX: R42 Dizziness and giddiness (principal); M10.9 Gout, unspecified; I12.9 Hypertensive chronic kidney disease with stage 1 through stage 4 chronic kidney disease, or unspecified chronic kidney disease; E11.22 Type 2 diabetes mellitus with diabetic chronic kidney disease; N18.3 Chronic kidney disease, stage 3 (moderate); E78.5 Hyperlipidemia, unspecified; F32.9 Major depressive disorder, single episode, unspecified; F41.9 Anxiety disorder, unspecified; D64.9 Anemia, unspecified; Z79.82 Long term (current) use of aspirin; Z79.4 Long term (current) use of insulin; Z79.899 Other long term (current) drug therapy
CPT/HCPCS: 36415; 70450; 71010; 80053; 81001; 82962; 83605; 84484; 85025; 86140; 87040; 93005; 96360; 96361; 97165-GO; 99285; A9270-GY; J2543; J3370; J7040; J7050

== ENCOUNTER 2019-11-23 20:24 | Emergency (ER) | payer MEDICARE, BC ==
[2019-11-23] MEDS: Sodium Chloride 0.9% 10 ML Syringe FLUSH PRN ×4 (20:26→20:43)
[2019-11-23] MEDS ORDERED: Morphine 2 MG/ML Syringe IVPUSH ONE ×2 (20:27)
[2019-11-23] MEDS ORDERED: LORazepam 2 MG/ML SDV IVPUSH ONE (20:32)
[2019-11-23] MEDS ORDERED: Albuterol/Ipratropium 3.0-0.5 MG/3 ML Neb Soln NEB ONE ×2 (20:32→20:33)
[2019-11-23] MEDS ORDERED: methylPREDNISolone Sodium Succinate 125 MG/2 ML SDV IVPUSH ONE (20:32)
[2019-11-23] MEDS ORDERED: Metolazone 2.5 MG Tab PO ONE (20:36)
[2019-11-23] MEDS ORDERED: Furosemide 40 MG/4 ML VIAL IVPUSH ONE (20:36)
[2019-11-23] MEDS ORDERED: Heparin Sodium 5,000 Units/ML Vial IVPUSH ONE (21:22)
[2019-11-23] MEDS ORDERED: Heparin Sodium/0.45% NaCl 500 ML IV SCH (21:23)
--- NOTE | 2019-11-23 21:29 | EDM.PDOC ---
ED HPI GENERAL MEDICAL PROBLEM - General Chief Complaint: Respiratory Problem Stated Complaint: SOB Time Seen by Provider: 11/23/19 20:25 Source of Information: Reports: Patient, EMS, Family History Limitations: Reports: No Limitations - History of Present Illness INITIAL COMMENTS - FREE TEXT/NARRATIVE: Patient presented to the ED because of sudden onset of dyspnea at about 1700. There is no cough or cold fever or chills. Patient also c/o of sharp pain over the left shoulder although she denies having any chest pain. She also noticed that her abdomen is getting bigger, denies any abdominal pain, nausea or vomiting. - Related Data Allergies Allergy/AdvReac Type Severity Reaction Status Date / Time No Known Allergies Allergy Verified 02/14/17 15:08 Home Meds: Home Meds Amitriptyline [Elavil] 75 mg PO BEDTIME 04/20/15 [History] Ascorbic Acid [Vitamin C] 250 mg PO DAILY 04/20/15 [History] Aspirin [Halfprin] 81 mg PO BEDTIME 04/20/15 [History] Cholecalciferol (Vitamin D3) [Vitamin D3] 1,000 units PO DAILY 04/20/15 [History ] Cyanocobalamin (Vitamin B-12) [Vitamin B-12] 500 mcg PO DAILY 04/20/15 [History] Ferrous Sulfate 325 mg PO DAILY 04/20/15 [History] Insuln Asp Prot/Insulin Aspart [NovoLOG Mix 70-30] 50 units SUBCUT BIDMEALS 09/29 [History] Multivitamin [Daily Multiple Vitamin] 1 tab PO DAILY 04/20/15 [History] PARoxetine [Paxil] 30 mg PO BEDTIME 04/20/15 [History] atorvaSTATin [Lipitor] 20 mg PO DAILY 04/20/15 [History] Metoprolol Succinate [Toprol XL] 50 mg PO DAILY 01/29/17 [History] PARoxetine HCl [Paxil] 20 mg PO DAILY 01/29/17 [History] Prednisone [IJD: Prednisone] 5 mg PO DAILY 01/29/17 [History] amLODIPine Besylate/Benazepril [Amlodipine-Benazepril 5-20 MG] 1 cap PO DAILY [History] metFORMIN [Glucophage] 1,275 mg PO DAILY 01/29/17 [History] metFORMIN [Glucophage] 425 mg PO BEDTIME 02/15/17 [History] Past Medical History HEENT History: Reports: Cataract Cardiovascular History: Reports: Hypertension Other Cardiovascular History: currently heart rhythm study Respiratory History: Reports: None Gastrointestinal History: Reports: Other (See Below) Other Gastrointestinal History: colon cancer x2 Genitourinary History: Reports: Chronic Renal Insuffiency 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 Psychiatric History: Reports: Anxiety, Depression Endocrine/Metabolic History: Reports: Diabetes, Type II, Obesity/BMI 30+ Hematologic History: Reports: Anemia, Iron Deficiency Oncologic (Cancer) History: Reports: Colon Other Oncologic History: colon CA x 2. Dermatologic History: Reports: Other (See Below) Other Dermatologic History: had cellulitis to lower right ankle area. nervous condition, picks @ arms bilat & face. - Infectious Disease History Infectious Disease History: Reports: Chicken Pox, Measles - Past Surgical History HEENT Surgical History: Reports: Cataract Surgery Cardiovascular Surgical History: Reports: None GI Surgical History: Reports: Colon, Colonoscopy, Other (See Below) Female Surgical History: Reports: Section Other Female Surgeries/Procedures: CS x 1 Musculoskeletal Surgical History: Reports: Other (See Below) Other Musculoskeletal Surgeries/Procedures:: Back surgery Dermatological Surgical History: Reports: Other (See Below) Social & Family History - Family History Family Medical History: Noncontributory - Caffeine Use Caffeine Use: Reports: Coffee Other Caffeine Use: 2-3 cups ED ROS GENERAL - Review of Systems Review Of Systems: See Below Constitutional: Reports: No Symptoms HEENT: Reports: No Symptoms Respiratory: Reports: Shortness of Breath, Wheezing. Denies: Cough Cardiovascular: Reports: No Symptoms Endocrine: Reports: No Symptoms GI/Abdominal: Reports: No Symptoms : Reports: No Symptoms Musculoskeletal: Reports: No Symptoms Skin: Reports: No Symptoms Neurological: Reports: No Symptoms Psychiatric: Reports: No Symptoms ED EXAM, GENERAL - Physical Exam Exam: See Below Exam Limited By: No Limitations General Appearance: Alert, No Apparent Distress Eye Exam: Bilateral Eye: PERRL Nose: Normal Inspection Throat/Mouth: Normal Inspection, Normal Lips Head: Atraumatic, Normocephalic Neck: Normal Inspection, Supple, Non-Tender Respiratory/Chest: Chest Non-Tender, Respiratory Distress, Decreased Breath Sounds, Crackles, Wheezing Cardiovascular: Tachycardia. No: No Murmur, No Rub GI/Abdominal: Normal Bowel Sounds, Soft, Non-Tender Back Exam: Normal Inspection, Full Range of Motion Extremities: Normal Inspection, Non-Tender, Other (grade 2 bilateral lower extremity edema) Neurological: Alert, Oriented, CN II-XII Intact, Normal Cognition Course - Vital Signs Text/Narrative:: Labs/EKG/CXR was discussed with patient and daughter and verbalized full understanding Duoneb x2 Solumedrol 125 mg IV x1 Morphine 2 mg IV x1 Ativan 1 mg IV x1 Lasix 40 mg IV x1 Zaroxolyn 2.5 mg po x1 ASA 324 mg PO x1 Heparin bolus 4000 U Heparin drio @ 1000 U/hr COVID-negative Last Recorded V/S: Last Vital Signs Temp 36.7 C 11/23/19 21:46 Pulse Resp BP Pulse Ox - Orders/Labs/Meds Orders: Active Orders 24 hr Category Date Time Status EKG Documentation Completion [RC] ASDIRECTED Care 11/23/19 20:30 Active RT Aerosol Therapy [RC] ASDIRECTED Care 11/23/19 20:32 Active RT Aerosol Therapy [RC] ASDIRECTED Care 11/23/19 20:33 Active Chest 1V Frontal [CR] Stat Exams 11/23/19 20:29 Taken Heparin Sodium/0.45% NaCl [Heparin 25,000 Units in 1/2 Med 11/23/19 21:23 Active NS 500 ML] 500 ml IV ASDIRECTED Sodium Chloride 0.9% [Saline Flush] Med 11/23/19 20:29 Active 10 ml FLUSH ASDIRECTED PRN Saline Lock Insert [OM.PC] Routine Oth 11/23/19 20:29 Ordered EKG 12 Lead [EK] Routine Ther 11/23/19 20:29 Ordered Medication Orders Heparin Sodium/Sodium Chloride (Heparin 25,000 Units In 1/2 Ns 500 Ml) 500 mls @ 20 mls/hr IV ASDIRECTED ROSMERY Last Admin: 11/23/19 21:39 Dose: 20 mls/hr Sodium Chloride (Saline Flush) 10 ml FLUSH ASDIRECTED PRN PRN Reason: Keep Vein Open Labs: Laboratory Tests 11/23/19 11/23/19 11/23/19 Range/Units 20:30 20:30 20:30 WBC 10.6 (4.5-12.0) X10-3/uL RBC 4.08 (3.23-5.20) x10(6)uL Hgb 11.3 L (11.5-15.5) g/dL Hct 35.9 (30.0-51.3) % MCV 88.0 (80-96) fL MCH 27.7 (27.7-33.6) pg MCHC 31.5 L (32.2-35.4) g/dL RDW 14.7 (11.5-15.5) % Plt Count 382 H (125-369) X10(3)uL MPV 7.2 L (7.4-10.4) fL Neut % (Auto) 67.2 (46-82) % Lymph % (Auto) 21.2 (13-37) % [place] % (Auto) 8.8 (4-12) % Eos % (Auto) 2 (1.0-5.0) % Baso % (Auto) 1 (0-2) % Neut # (Auto) 7.2 (1.6-8.3) # Lymph # (Auto) 2.2 (0.6-5.0) # [place] # (Auto) 0.9 (0.0-1.3) # Eos # (Auto) 0.2 (0.0-0.8) # Baso # (Auto) 0.1 (0.0-0.2) # D-Dimer, Quantitative (0.0-0.59) mg/LFEU ABG pH (7.35-7.45) ABG pCO2 (35-45) mmHg ABG pO2 (83-108) mmHg ABG HCO3 (22-26) mmol/L ABG O2 Saturation (96-97) % ABG Base Excess (-2-2) Rey Test O2 Delivery Device Oxygen Flow Rate L Sodium 138 (135-145) mmol/L Potassium 4.3 (3.5-5.3) mmol/L Chloride 104 (100-110) mmol/L Carbon Dioxide 25 (21-32) mmol/L BUN 14 (7-18) mg/dL Creatinine 1.4 H (0.55-1.02) mg/dL Est Cr Clr Drug Dosing TNP Estimated GFR (MDRD) 36 L (>60) BUN/Creatinine Ratio 10.0 (9-20) Glucose 284 H (80-116) mg/dL Lactic Acid (0.4-2.0) mmol/L Calcium 9.3 (8.6-10.2) mg/dL Total Bilirubin 0.6 (0.1-1.3) mg/dL AST 34 H (5-25) IU/L ALT 31 (12-36) U/L Alkaline Phosphatase 89 (56-112) IU/L Troponin I 109.6 H* (4.0-60.3) pg/mL C-Reactive Protein (0.5-0.9) mg/dL NT-Pro-B Natriuret Pep 4048 H* (<=450) pg/mL Total Protein 7.6 (6.0-8.0) g/dL Albumin 3.4 (3.2-4.6) g/dL Globulin 4.2 g/dL Albumin/Globulin Ratio 0.8 Urine Color (YELLOW) Urine Appearance (CLEAR) Urine pH (5.0-6.5) Ur Specific [place] (1.010-1.025) Urine Protein (NEGATIVE) mg/dL Urine Glucose (UA) (NORMAL) mg/dL Urine Ketones (NEGATIVE) mg/dL Urine Occult Blood (NEGATIVE) Urine Nitrite (NEGATIVE) Urine Bilirubin (NEGATIVE) Urine Urobilinogen (NEGATIVE) mg/dL Ur Leukocyte Esterase (NEGATIVE) Urine RBC (0-5) Urine WBC (0-5) Ur Squamous Epith Cells (NS,R,O) Amorphous Sediment Urine Bacteria (NS) Coarse Granular Casts (NS) Urine Mucus (NS) SARS Virus RNA (PCR) (NEGATIVE) 11/23/19 11/23/19 11/23/19 Range/Units 20:30 20:30 20:30 WBC (4.5-12.0) X10-3/uL RBC (3.23-5.20) x10(6)uL Hgb (11.5-15.5) g/dL Hct (30.0-51.3) % MCV (80-96) fL MCH (27.7-33.6) pg MCHC (32.2-35.4) g/dL RDW (11.5-15.5) % Plt Count (125-369) X10(3)uL MPV (7.4-10.4) fL Neut % (Auto) (46-82) % Lymph % (Auto) (13-37) % [place] % (Auto) (4-12) % Eos % (Auto) (1.0-5.0) % Baso % (Auto) (0-2) % Neut # (Auto) (1.6-8.3) # Lymph # (Auto) (0.6-5.0) # [place] # (Auto) (0.0-1.3) # Eos # (Auto) (0.0-0.8) # Baso # (Auto) (0.0-0.2) # D-Dimer, Quantitative 2.90 H (0.0-0.59) mg/LFEU ABG pH (7.35-7.45) ABG pCO2 (35-45) mmHg ABG pO2 (83-108) mmHg ABG HCO3 (22-26) mmol/L ABG O2 Saturation (96-97) % ABG Base Excess (-2-2) Rey Test O2 Delivery Device Oxygen Flow Rate L Sodium (135-145) mmol/L Potassium (3.5-5.3) mmol/L Chloride (100-110) mmol/L Carbon Dioxide (21-32) mmol/L BUN (7-18) mg/dL Creatinine (0.55-1.02) mg/dL Est Cr Clr Drug Dosing Estimated GFR (MDRD) (>60) BUN/Creatinine Ratio (9-20) Glucose (80-116) mg/dL Lactic Acid 1.8 (0.4-2.0) mmol/L Calcium (8.6-10.2) mg/dL Total Bilirubin (0.1-1.3) mg/dL AST (5-25) IU/L ALT (12-36) U/L Alkaline Phosphatase (56-112) IU/L Troponin I (4.0-60.3) pg/mL C-Reactive Protein 0.6 (0.5-0.9) mg/dL NT-Pro-B Natriuret Pep (<=450) pg/mL Total Protein (6.0-8.0) g/dL Albumin (3.2-4.6) g/dL Globulin g/dL Albumin/Globulin Ratio Urine Color (YELLOW) Urine Appearance (CLEAR) Urine pH (5.0-6.5) Ur Specific [place] (1.010-1.025) Urine Protein (NEGATIVE) mg/dL Urine Glucose (UA) (NORMAL) mg/dL Urine Ketones (NEGATIVE) mg/dL Urine Occult Blood (NEGATIVE) Urine Nitrite (NEGATIVE) Urine Bilirubin (NEGATIVE) Urine Urobilinogen (NEGATIVE) mg/dL Ur Leukocyte Esterase (NEGATIVE) Urine RBC (0-5) Urine WBC (0-5) Ur Squamous Epith Cells (NS,R,O) Amorphous Sediment Urine Bacteria (NS) Coarse Granular Casts (NS) Urine Mucus (NS) SARS Virus RNA (PCR) (NEGATIVE) 11/23/19 11/23/19 11/23/19 Range/Units 20:35 20:37 21:07 WBC (4.5-12.0) X10-3/uL RBC (3.23-5.20) x10(6)uL Hgb (11.5-15.5) g/dL Hct (30.0-51.3) % MCV (80-96) fL MCH (27.7-33.6) pg MCHC (32.2-35.4) g/dL RDW (11.5-15.5) % Plt Count (125-369) X10(3)uL MPV (7.4-10.4) fL Neut % (Auto) (46-82) % Lymph % (Auto) (13-37) % [place] % (Auto) (4-12) % Eos % (Auto) (1.0-5.0) % Baso % (Auto) (0-2) % Neut # (Auto) (1.6-8.3) # Lymph # (Auto) (0.6-5.0) # [place] # (Auto) (0.0-1.3) # Eos # (Auto) (0.0-0.8) # Baso # (Auto) (0.0-0.2) # D-Dimer, Quantitative (0.0-0.59) mg/LFEU ABG pH 7.30 L (7.35-7.45) ABG pCO2 50 H (35-45) mmHg ABG pO2 48 L* (83-108) mmHg ABG HCO3 24 (22-26) mmol/L ABG O2 Saturation 79 L* (96-97) % ABG Base Excess -2.3 L (-2-2) Rey Test Passed O2 Delivery Device Non rebr mask Oxygen Flow Rate 6 L Sodium (135-145) mmol/L Potassium (3.5-5.3) mmol/L Chloride (100-110) mmol/L Carbon Dioxide (21-32) mmol/L BUN (7-18) mg/dL Creatinine (0.55-1.02) mg/dL Est Cr Clr Drug Dosing Estimated GFR (MDRD) (>60) BUN/Creatinine Ratio (9-20) Glucose (80-116) mg/dL Lactic Acid (0.4-2.0) mmol/L Calcium (8.6-10.2) mg/dL Total Bilirubin (0.1-1.3) mg/dL AST (5-25) IU/L ALT (12-36) U/L Alkaline Phosphatase (56-112) IU/L Troponin I (4.0-60.3) pg/mL C-Reactive Protein (0.5-0.9) mg/dL NT-Pro-B Natriuret Pep (<=450) pg/mL Total Protein (6.0-8.0) g/dL Albumin (3.2-4.6) g/dL Globulin g/dL Albumin/Globulin Ratio Urine Color Yellow (YELLOW) Urine Appearance Cloudy (CLEAR) Urine pH 5.0 (5.0-6.5) Ur Specific [place] 1.025 (1.010-1.025) Urine Protein 100 H (NEGATIVE) mg/dL Urine Glucose (UA) 250 H (NORMAL) mg/dL Urine Ketones 15 H (NEGATIVE) mg/dL Urine Occult Blood Trace (NEGATIVE) Urine Nitrite Negative (NEGATIVE) Urine Bilirubin Negative (NEGATIVE) Urine Urobilinogen Normal (NEGATIVE) mg/dL Ur Leukocyte Esterase Negative (NEGATIVE) Urine RBC 0-5 (0-5) Urine WBC 0-5 (0-5) Ur Squamous Epith Cells Few H (NS,R,O) Amorphous Sediment Moderate Urine Bacteria Few H (NS) Coarse Granular Casts Few H (NS) Urine Mucus Few H (NS) SARS Virus RNA (PCR) Negative (NEGATIVE) Meds: Medications Generic Name Dose Route Start Last Admin Trade Name Freq PRN Reason Stop Dose Admin Heparin Sodium/Sodium Chloride 500 mls @ 20 mls/hr 11/23/19 21:23 11/23/19 21 :39 Heparin 25,000 Units In 1/2 Ns 500 Ml IV 20 mls/hr ASDIRECTED ROSMERY Administration Sodium Chloride 10 ml 11/23/19 20:29 Saline Flush FLUSH ASDIRECTED PRN Keep Vein Open Discontinued Medications Generic Name Dose Route Start Last Admin Trade Name Freq PRN Reason Stop Dose Admin Albuterol/Ipratropium 3 ml 11/23/19 20:32 11/23/19 20:24 Duoneb 3.0-0.5 Mg/3 Ml NEB 11/23/19 20:33 3 ml ONETIME ONE Administration Albuterol/Ipratropium 3 ml 11/23/19 20:33 11/23/19 20:36 Duoneb 3.0-0.5 Mg/3 Ml NEB 11/23/19 20:34 3 ml ONETIME ONE Administration Aspirin 324 mg 11/23/19 21:31 11/23/19 21:40 Aspirin PO 11/23/19 21:32 324 mg ONETIME ONE Administration Furosemide 40 mg 11/23/19 20:36 11/23/19 20:42 Lasix IVPUSH 11/23/19 20:37 40 mg NOW ONE Administration Heparin Sodium (Porcine) 4,000 units 11/23/19 21:22 11/23/19 21:36 Heparin Sodium IVPUSH 11/23/19 21:23 4,000 units ONETIME ONE Administration Lorazepam 1 mg 11/23/19 20:32 11/23/19 20:32 Ativan IVPUSH 11/23/19 20:33 1 mg ONETIME ONE Administration Methylprednisolone Sodium Succinate 125 mg 11/23/19 20:32 11/23/19 20:25 Solu-Medrol IVPUSH 11/23/19 20:33 125 mg ONETIME ONE Administration Metolazone 2.5 mg 11/23/19 20:36 11/23/19 20:50 Zaroxolyn PO 11/23/19 20:37 2.5 mg ONETIME ONE Administration Morphine Sulfate 1 mg 11/23/19 20:27 11/23/19 20:27 Morphine IVPUSH 11/23/19 20:28 1 mg ONETIME ONE Administration Departure - Departure Time of Disposition: 22:00 Disposition: DC/Tfer to Acute Hospital 02 Condition: Good Clinical Impression: New onset of congestive heart failure, Acute coronary syndrome, COPD exacerbation - Discharge Information Referrals: Jason Burroughs MD [Primary Care Provider] - Forms: ED Department Discharge Sepsis Event Note - Focused Exam Vital Signs: Vital Signs Temp 11/23/19 21:46 36.7 C Date Exam was Performed: 11/23/19 Time Exam was Performed: 22:04 - My Orders Last 24 Hours: My Active Orders 11/23/19 20:29 Chest 1V Frontal [CR] Stat Sodium Chloride 0.9% [Saline Flush] 10 ml FLUSH ASDIRECTED PRN Saline Lock Insert [OM.PC] Routine EKG 12 Lead [EK] Routine 11/23/19 20:30 EKG Documentation Completion [RC] ASDIRECTED 11/23/19 20:32 RT Aerosol Therapy [RC] ASDIRECTED 11/23/19 20:33 RT Aerosol Therapy [RC] ASDIRECTED 11/23/19 21:23 Heparin Sodium/0.45% NaCl [Heparin 25,000 Units in 1/2 NS 500 ML] 500 ml IV ASDIRECTED - Assessment/Plan Last 24 Hours: My Active Orders 11/23/19 20:29 Chest 1V Frontal [CR] Stat Sodium Chloride 0.9% [Saline Flush] 10 ml FLUSH ASDIRECTED PRN Saline Lock Insert [OM.PC] Routine EKG 12 Lead [EK] Routine 11/23/19 20:30 EKG Documentation Completion [RC] ASDIRECTED 11/23/19 20:32 RT Aerosol Therapy [RC] ASDIRECTED 11/23/19 20:33 RT Aerosol Therapy [RC] ASDIRECTED 11/23/19 21:23 Heparin Sodium/0.45% NaCl [Heparin 25,000 Units in 1/2 NS 500 ML] 500 ml IV ASDIRECTED
[2019-11-23] MEDS ORDERED: Aspirin 81 MG Tab.Chew PO ONE (21:31)
== END 2019-11-23 23:30 ==
LOC: FB.ED 20:24
DX: I13.0 Hypertensive heart and chronic kidney disease with heart failure and stage 1 through stage 4 chronic kidney disease, or unspecified chronic kidney disease (principal); I50.9 Heart failure, unspecified; N18.9 Chronic kidney disease, unspecified; I24.9 Acute ischemic heart disease, unspecified; J44.1 Chronic obstructive pulmonary disease with (acute) exacerbation; M10.9 Gout, unspecified; E11.22 Type 2 diabetes mellitus with diabetic chronic kidney disease; F41.9 Anxiety disorder, unspecified; F32.9 Major depressive disorder, single episode, unspecified; E66.9 Obesity, unspecified; Z68.39 Body mass index [BMI] 39.0-39.9, adult; Z79.82 Long term (current) use of aspirin; Z79.4 Long term (current) use of insulin; Z79.899 Other long term (current) drug therapy
CPT/HCPCS: 36415; 36600; 51702; 71045; 80053; 81001; 82803; 83605; 83880; 84484; 85025; 85379; 86140; 93005; 94640; 96365; 96366; 96375; 99285; A9270; J1644; J1940; J2060; J2270; J2930; U0002; J7620-GY